=== PATIENT | female | born 1945 | race Caucasian/White ===

== ENCOUNTER 2020-06-29 07:08 | Emergency (ER) | payer OTHER ==
--- OUTSIDE RECORDS SUMMARY | 2020-06-29 07:10 | XMS REPORT | Continuity of Care Document ---
:1945 Author Organization [facility] t Address [address] [place] [address] Dr. Castellanos [address] [place] [id number] Care Team Providers Name Role Phone Unavailable Unavailable Unavailable Problems This patient has no known problems. Allergies, Adverse Reactions, Alerts This patient has no known allergies or adverse reactions. Medications This patient has no known medications. Procedures This patient has no known procedures. Results This patient has no known results.
[2020-06-29 08:23] LABS: Absolute Lymphocytes (CBC) 1.8 K/uL (0.7-4.9); Basophils % 0.5 % (0-1.3); Hematocrit 42.3 % (36.0-45.0); Lymphocytes % 27.6 % (15.3-44.8); MPV 9.5 fL (7.6-11.3); RBC Red Blood Cell Count 4.69 M/uL (3.86-4.86)
[2020-06-29 08:35] LABS: BUN Blood Urea Nitrogen 15 mg/dL (7-18); Bicarbonate 31 mmol/L (21-32); Glucose Level 99 mg/dL (74-106); Potassium 3.7 mmol/L (3.5-5.1); Sodium Level 141 mmol/L (136-145); Troponin (Emerg Dept Use Only) < 0.02 ng/mL (0.0-0.045)
--- NOTE | 2020-06-29 09:39 | ER ---
Nurse's Notes [facility] Name: Elizabeth Walker Age: 74 yrs Sex: Female : 1945 Arrival Date: 06/29/2020 Time: 07:09 Bed 6 Private MD: Kwame Medellin V Diagnosis: Abnormal blood-pressure reading, without diagnosis;Encounter for examination of blood pressure without abnormal findings Presentation: 06/29 07:27 Chief complaint: Patient states: "my blood pressure has been high it was over 200/110 aa5 and then later it was 170/130". Pt denies any symptoms, denies headache. Pt states "I also have white coat syndrome so it doesn't help". 07:27 Coronavirus screen: Client denies travel out of the [place] in the last 14 days. At this aa5 time, the client does not indicate any symptoms associated with coronavirus-19. Ebola Screen: Patient negative for fever greater than or equal to 101.5 degrees Fahrenheit, and additional compatible Ebola Virus Disease symptoms. Initial Sepsis Screen: Does the patient meet any 2 criteria? No. Patient's initial sepsis screen is negative. Does the patient have a suspected source of infection? No. Patient's initial sepsis screen is negative. Risk Assessment: Do you want to hurt yourself or someone else? Patient reports no desire to harm self or others. Onset of symptoms was June 29, 2020. 07:27 Acuity: ROMEL 3 aa5 07:27 Method Of Arrival: Ambulatory aa5 Triage Assessment: 07:30 General: Appears in no apparent distress. comfortable, Behavior is cooperative, bp appropriate for age, anxious. Pain: Denies pain. EENT: No deficits noted. Neuro: Level of Consciousness is awake, alert, obeys commands, Oriented to Appropriate for age. Cardiovascular: No deficits noted. Respiratory: No deficits noted. GI: No signs and/or symptoms were reported involving the gastrointestinal system. : No signs and/or symptoms were reported regarding the genitourinary system. Derm: No deficits noted. Musculoskeletal: No deficits noted. Historical: - Allergies: 07:30 No Known Allergies; aa5 - Home Meds: 07:44 quinapril 20 mg Oral tab once daily [Active]; hydralazine 25 mg Oral tab 2 times per aa5 day [Active]; citalopram 20 mg tab 1 tab once daily [Active]; atenolol 50 mg Oral tab once daily [Active]; omeprazole 20 mg Oral cpDR once daily [Active]; atorvastatin 20 mg oral tab 1 tab once daily [Active]; - PMHx: 07:30 Hypertension; Hyperlipidemia; aa5 - Immunization history:: Adult Immunizations unknown. - Social history:: Smoking status: Patient denies any tobacco usage or history of. - Family history:: not pertinent. - Hospitalizations: : No recent hospitalization is reported. Screenin:30 Abuse screen: Denies threats or abuse. Denies injuries from another. Nutritional bp screening: No deficits noted. Tuberculosis screening: No symptoms or risk factors identified. Fall Risk None identified. Assessment: 07:30 General: SEE TRIAGE NOTE. bp 08:00 Reassessment: Patient appears in no apparent distress at this time. No changes from bp previously documented assessment. Patient and/or family updated on plan of care and expected duration. Pain level reassessed. Patient is alert, oriented x 3, equal unlabored respirations, skin warm/dry/pink. 09:00 Reassessment: Patient appears in no apparent distress at this time. Patient denies pain rb3 at this time. 09:54 Reassessment: Patient appears in no apparent distress at this time. Patient and/or rb3 family updated on plan of care and expected duration. Pain level reassessed. Patient is alert, oriented x 3, equal unlabored respirations, skin warm/dry/pink. Patient denies pain at this time. Vital Signs: 07:27 BP 185 / 98; Pulse 99; Resp 18 S; Temp 98.4(O); Pulse Ox 99% on R/A; Weight 69.85 kg aa5 (R); Height 5 ft. 5 in. (165.10 cm) (R); Pain 0/10; 08:00 BP 173 / 84; Pulse 77; Resp 17; Pulse Ox 99% ; bp 09:07 BP 185 / 83; Pulse 72; Resp 16; Temp 98.5(O); Pulse Ox 99% on R/A; mh5 09:54 BP 175 / 85; Pulse 71; Resp 16; Pulse Ox 99% ; Pain 0/10; rb3 07:27 Body Mass Index 25.63 (69.85 kg, 165.10 cm) aa5 ED Course: 07:09 Patient arrived in ED. ag5 07:09 Kwame Medellin MD is Private Physician. ag5 07:27 Juan F Zhang, RN is Primary Nurse. bp 07:27 Arm band placed on Patient placed in an exam room, on a stretcher. aa5 07:29 Solitario Keyes MD is Attending Physician. rn 07:30 Patient has correct armband on for positive identification. Bed in low position. Call bp light in reach. Side rails up X2. Adult w/ patient. 07:41 Triage completed. aa5 07:54 Primary Nurse role handed off by Juan F Zhang, RN rb3 07:54 Tamanna Dumont, RN is Primary Nurse. rb3 07:54 Tamanna Dumont, HARI is Primary Nurse. rb3 08:10 Inserted saline lock: 22 gauge in right antecubital area, using aseptic technique. rb3 Blood collected. 09:08 Warm blanket given. classroom monitor on. Pulse ox on. NIBP on. 5 09:08 Inserted. 5 09:38 Kwame Medellin MD is Referral Physician. rn 09:56 No provider procedures requiring assistance completed. IV discontinued, intact, rb3 bleeding controlled, No redness/swelling at site. Pressure dressing applied. Administered Medications: No medications were administered Outcome: 09:38 Discharge ordered by . rn 09:56 Discharged to home ambulatory. rb3 09:56 Condition: stable 09:56 Discharge instructions given to patient, Instructed on discharge instructions, follow up and referral plans. Demonstrated understanding of instructions, follow-up care, Prescriptions given X none 09:58 Patient left the ED. rb3 Signatures: Solitario Keyes MD MD rn Calderon, Audri, RN RN [facility] Monika Marshall [facility] Juan F Zhang, RN RN Kelvin [facility] Tamanna Dumont, RN RN rb3
--- NOTE | 2020-06-29 09:39 | EDPHYS ---
Physician Documentation [facility] Name: Elizabeth Walker Age: 74 yrs Sex: Female : 1945 Arrival Date: 06/29/2020 Time: 07:09 Bed 6 Private MD: Kwame Medellin V ED Physician Solitario Keyes HPI: 06/29 09:34 This 74 yrs old Female presents to ER via Ambulatory with complaints of High rn Blood Pressure. 09:34 The patient has elevated blood pressure and discovered this at home. Onset: The rn symptoms/episode began/occurred 3 day(s) ago. Modifying factors: The symptoms are aggravated by nothing, The symptoms are alleviated by nothing. Associated signs and symptoms: Pertinent negatives: chest pain, dizziness, dyspnea, headache, lightheadedness, nausea, visual changes, vomiting, weakness. Severity of symptoms: At its worst the blood pressure was moderate, in the emergency department the blood pressure is improved. The patient has experienced similar episodes in the past. The patient has been recently seen by a physician:. Reports a few days of high blood pressure, no change in medication, denies acute symptoms. No headache/vision changes/chest pain/sob/abd pain/vomiting/focal neuro complaint. . Historical: - Allergies: 07:30 No Known Allergies; aa5 - Home Meds: 07:44 quinapril 20 mg Oral tab once daily [Active]; hydralazine 25 mg Oral tab 2 times per aa5 day [Active]; citalopram 20 mg tab 1 tab once daily [Active]; atenolol 50 mg Oral tab once daily [Active]; omeprazole 20 mg Oral cpDR once daily [Active]; atorvastatin 20 mg oral tab 1 tab once daily [Active]; - PMHx: 07:30 Hypertension; Hyperlipidemia; aa5 - Immunization history:: Adult Immunizations unknown. - Social history:: Smoking status: Patient denies any tobacco usage or history of. - Family history:: not pertinent. - Hospitalizations: : No recent hospitalization is reported. ROS: 09:34 Constitutional: Negative for fever, chills, and weight loss, Eyes: Negative for injury, rn pain, redness, and discharge, Neck: Negative for injury, pain, and swelling, Cardiovascular: Negative for chest pain, palpitations, and edema, Respiratory: Negative for shortness of breath, cough, wheezing, and pleuritic chest pain, Abdomen/GI: Negative for abdominal pain, nausea, vomiting, diarrhea, and constipation, Back: Negative for injury and pain, : Negative for injury, bleeding, discharge, and swelling, MS/Extremity: Negative for injury and deformity, Skin: Negative for injury, rash, and discoloration, Neuro: Negative for headache, weakness, numbness, tingling, and seizure. Exam: 08:13 ECG was reviewed by the Attending Physician. rn 09:34 Constitutional: This is a well developed, well nourished patient who is awake, alert, rn and in no acute distress. Head/Face: Normocephalic, atraumatic. Eyes: Pupils equal round and reactive to light, extra-ocular motions intact. Lids and lashes normal. Conjunctiva and sclera are non-icteric and not injected. Cornea within normal limits. Periorbital areas with no swelling, redness, or edema. Neck: Trachea midline, no thyromegaly or masses palpated, and no cervical lymphadenopathy. Supple, full range of motion without nuchal rigidity, or vertebral point tenderness. No Meningismus. Cardiovascular: Regular rate and rhythm. No pulse deficits. Respiratory: No increased work of breathing, no retractions or nasal flaring. Abdomen/GI: soft, non-tender Skin: Warm, dry MS/ Extremity: Pulses equal, no cyanosis. Neurovascular intact. Full, normal range of motion. Equal circumference. Neuro: Awake and alert, GCS 15, oriented to person, place, time, and situation. Cranial nerves II-XII grossly intact. Motor strength 5/5 in all extremities. Sensory grossly intact. Cerebellar exam normal. Vital Signs: 07:27 BP 185 / 98; Pulse 99; Resp 18 S; Temp 98.4(O); Pulse Ox 99% on R/A; Weight 69.85 kg aa5 (R); Height 5 ft. 5 in. (165.10 cm) (R); Pain 0/10; 08:00 BP 173 / 84; Pulse 77; Resp 17; Pulse Ox 99% ; bp 09:07 BP 185 / 83; Pulse 72; Resp 16; Temp 98.5(O); Pulse Ox 99% on R/A; mh5 09:54 BP 175 / 85; Pulse 71; Resp 16; Pulse Ox 99% ; Pain 0/10; rb3 07:27 Body Mass Index 25.63 (69.85 kg, 165.10 cm) aa5 MDM: 07:29 Patient medically screened. rn 09:34 Differential diagnosis: hypertensive crisis, Malignant HTN, asymptomatic HTN. Data rn reviewed: vital signs, nurses notes, lab test result(s), EKG, and as a result, I will discharge patient. Counseling: I had a detailed discussion with the patient and/or guardian regarding: the historical points, exam findings, and any diagnostic results supporting the discharge/admit diagnosis, lab results, the need for outpatient follow up, to return to the emergency department if symptoms worsen or persist or if there are any questions or concerns that arise at home. Counseling: I had a detailed discussion with the patient and/or guardian regarding: the presence of at least one elevated blood pressure reading (>120/80) during this emergency department visit. Response to treatment: the patient's symptoms have mildly improved after treatment, and as a result, I will discharge patient. Special discussion: I discussed with the patient/guardian in detail that at this point there is no indication for admission to the hospital. It is understood, however, that if the symptoms persist or worsen the patient needs to return immediately for re-evaluation. Based on the history and exam findings, there is no indication for further emergent testing or inpatient evaluation. I discussed with the patient/guardian the need to see the primary care provider for further evaluation of the symptoms. ED course: Had long discussion with patient regarding HTN, neg tests here, no ischemia on ECG, still no acute complaints, and normal neuro exam. Will dc home with instructions to take BP journal at home, and f/u with Dr. Medellin tomorrow for more instructions. . 06/29 07:50 Order name: CBC with Diff; Complete Time: : rn 06/29 07:50 Order name: Basic Metabolic Panel; Complete Time: : rn 06/29 07:50 Order name: IV Start; Complete Time: 08:06 rn 06/29 07:50 Order name: Troponin (emerg Dept Use Only); Complete Time: 09: rn 06/29 07:50 Order name: EKG; Complete Time: 07:51 rn 06/29 07:50 Order name: EKG - Nurse/Tech; Complete Time: 08:06 rn EC:13 Rate is 82 beats/min. Rhythm is regular. QRS Martell is Normal. ID interval is normal. QRS rn interval is normal. QT interval is normal. No Q waves. T waves are Normal. No ST changes noted. Clinical impression: NSR w/ Non-specific ST/T Changes. Interpreted by me. Reviewed by me. Administered Medications: No medications were administered Disposition: 06/29/20 09:38 Discharged to Home. Impression: Abnormal blood-pressure reading, without diagnosis, Encounter for examination of blood pressure without abnormal findings. - Condition is Stable. - Discharge Instructions: Hypertension. - Medication Reconciliation Form, Thank You Letter, Antibiotic Education, Prescription Opioid Use form. - Follow up: Kwame Medellin MD; When: 1 - 2 days; Reason: Recheck today's complaints, Re-evaluation by your physician. - Problem is an ongoing problem. - Symptoms have improved. Signatures: Dispatcher [employer] EDMS Solitario Keyes MD MD rn Calderon, Audri RN RN aa5 Tamanna Dumont RN RN rb3 Corrections: (The following items were deleted from the chart) 09:58 09:38 06/29/2020 09:38 Discharged to Home. Impression: Abnormal blood-pressure reading, rb3 without diagnosis; Encounter for examination of blood pressure without abnormal findings. Condition is Stable. Forms are Medication Reconciliation Form, Thank You Letter, Antibiotic Education, Prescription Opioid Use. Follow up: Kwame Medellin; When: 1 - 2 days; Reason: Recheck today's complaints, Re-evaluation by your physician. Problem is an ongoing problem. Symptoms have improved. rn
[2020-06-29 10:53] VITALS: O2SAT 99
[2020-06-29 10:57] VITALS: TEMP 98.5
[2020-06-29 10:59] VITALS: BP 175/85
== END 2020-06-29 09:58 | disposition home or self-care (01) ==
LOC: ER 07:08
DX: R03.0 Elevated blood-pressure reading, without diagnosis of hypertension (principal); E78.5 Hyperlipidemia, unspecified
CPT/HCPCS: 36415; 80048; 84484; 85025; 93005; 99284

== ENCOUNTER 2022-07-20 17:36 | Emergency (ER) | payer OTHER ==
--- OUTSIDE RECORDS SUMMARY | 2022-07-20 17:39 | XMS REPORT | Continuity of Care Document ---
:1945 Author Organization [facility] t Address [address] [place] [address] Care Team Providers Name Role Phone Kwame Medellin Attending Clinician Unavailable Payers Payer Name Policy Type Policy Number Effective Date Expiration Date [place] [address] [id number] [facility] Problems Condition Condition Condition Status Onset Resolution Last Treating Co mments Source Name Details Category Date Date Treatment Clinician Date [id number] [place], [place] [id number] [facility] [id number] Primary Problem [facility] Allergies, Adverse Reactions, Alerts Allergy Allergy Status Severity Reaction(s) Onset Inactive Treating Comm ents Source Name Type Date Date Clinician 0 Drug Active Unknown Common allergy [facility] amoxicil amoxicil Active Unknown Commo n jhon jhon [facility] Social History Social Habit Start Date Stop Date Quantity Comments Source History of Tobacco Use Co mmon [facility] Sex Assigned At Com mon [facility] Smoking Status Start Date Stop Date Source Former Smoker 2022-06-11 00:00:00 2022-06-11 00:00:00 [facility] Medications Ordered Filled Start Stop Current Ordering Indication Dosage Frequency Signature Comments Components Source Medication Medication Date Date Medication? Clinician (SIG) Name Name Lidocaine Lidocaine 2021-08 No 20mg [facility] 00:00: - [facility] Kenalog Kenalog 2021-08 No 40mg [facility] (Triamcinol (Triamcinol 0-28 S pirit one) one) 00:00: - [facility] Lidocaine Lidocaine 2021-08 No 20mg [facility] 00:00: - [facility] Ralph Rosas 2021-08 No 40mg [facility] (Triamcinol (Triamcinol 0-28 S pirit one) one) 00:00: - [facility] Lidocaine Lidocaine 2021-08 No 20mg Com tue [facility] 00:00: - [facility] Ralph Rosas 2021-08 No 40mg [facility] (Triamcinol (Triamcinol 0-28 S pirit one) one) 00:00: - [facility] Citalopram Citalopram No 1{table QD Citalopram Hydrobromid Hydrobromid t} Hydrobromi e 20 MG e 20 MG de 20 MG amLODIPine amLODIPine No amLODIPine Besylate Besylate Besylate Omeprazole Omeprazole No 1{capsu QD Omeprazole 20 MG 20 MG le} 20 MG hydrALAZINE hydrALAZINE No 1{table QID hydrALAZIN HCl 10 MG HCl 10 MG t_with_ E HCl 10 food} MG Spironolact Spironolact No Spironolac one one tone Atenolol 50 Atenolol 50 No 1{table QD Atenolol MG MG t} 50 MG Magnesium Magnesium No Magnesium Atorvastati Atorvastati No 1{table QD Atorvastat n Calcium n Calcium t} in Calcium 20 MG 20 MG 20 MG Quinapril Quinapril No 1{table QD Quinapril HCl 20 MG HCl 20 MG t} HCl 20 MG Citalopram Citalopram No 1{table QD Citalopram Hydrobromid Hydrobromid t} Hydrobromi e 20 MG e 20 MG de 20 MG amLODIPine amLODIPine No amLODIPine Besylate Besylate Besylate Omeprazole Omeprazole No 1{capsu QD Omeprazole 20 MG 20 MG le} 20 MG hydrALAZINE hydrALAZINE No 1{table QID hydrALAZIN HCl 10 MG HCl 10 MG t_with_ E HCl 10 food} MG Spironolact Spironolact No Spironolac one one tone Atenolol 50 Atenolol 50 No 1{table QD Atenolol MG MG t} 50 MG Magnesium Magnesium No Magnesium Atorvastati Atorvastati No 1{table QD Atorvastat n Calcium n Calcium t} in Calcium 20 MG 20 MG 20 MG Quinapril Quinapril No 1{table QD Quinapril HCl 20 MG HCl 20 MG t} HCl 20 MG Citalopram Citalopram No 1{table QD Citalopram Hydrobromid Hydrobromid t} Hydrobromi e 20 MG e 20 MG de 20 MG amLODIPine amLODIPine No amLODIPine Besylate Besylate Besylate Omeprazole Omeprazole No 1{capsu QD Omeprazole 20 MG 20 MG le} 20 MG hydrALAZINE hydrALAZINE No 1{table QID hydrALAZIN HCl 10 MG HCl 10 MG t_with_ E HCl 10 food} MG Spironolact Spironolact No Spironolac one one tone Atenolol 50 Atenolol 50 No 1{table QD Atenolol MG MG t} 50 MG Magnesium Magnesium No Magnesium Atorvastati Atorvastati No 1{table QD Atorvastat n Calcium n Calcium t} in Calcium 20 MG 20 MG 20 MG Quinapril Quinapril No 1{table QD Quinapril HCl 20 MG HCl 20 MG t} HCl 20 MG Vital Signs Vital Name Observation Time Observation Value Comments Source height 2022-06-11 09:00:00 65.5 [in_i] [facility] weight 2022-06-11 09:00:00 158 [lb_av] [facility] temperature 2022-06-11 09:00:00 98.2 [degF] [facility] bmi 2022-06-11 09:00:00 25.89 kg/m2 [facility] blood pressure 2022-06-11 09:00:00 124 mm[Hg] [facility] systolic [facility] blood pressure 2022-06-11 09:00:00 74 mm[Hg] [facility] diastolic [facility] Procedures This patient has no known procedures. Encounters Start End Encounter Admission Attending Care Care Encounter Source Date/Time Date/Time Type Type Clinicians Facility Department ID 2022-06-11 Outpatient Lacie, STLMLC ST[facility] [id number] [facility] 08:51:04 Kwame [id number] [facility] 2022-06-29 2022-06-29 (TEL) [facility] [id number] Co mmon 00:00:00 00:00:00 [facility] 2022-06-23 2022-06-23 (TEL) [facility] ST[facility] [id number] Co mmon 00:00:00 00:00:00 [facility] 2022-06-11 2022-06-11 OFFICE [facility] [id number] Co mmon 00:00:00 00:00:00 VISIT [facility] PT LEVEL 3 [facility] Results This patient has no known results.
[2022-07-20] MEDS ORDERED: METOPROLOL TARTRATE 5 MG/5 ML INJ IV ONE (18:14)
[2022-07-20 18:31] LABS: Absolute Lymphocytes (CBC) 2.6 K/uL (0.7-4.9); Hematocrit 43.4 % (36.0-45.0); Lymphocytes % 15.7 % (15.3-44.8); MCV 92.1 fL (80-100); MPV 8.1 fL (7.6-11.3); RBC Red Blood Cell Count 4.71 M/uL (3.86-4.86)
--- NOTE | 2022-07-20 18:39 | RAD REPORT ---
EXAM DESCRIPTION: Ijeoma Single View07/20/2022 6:03 pm CLINICAL HISTORY: Palpitation COMPARISON: 2013 FINDINGS: The lungs appear clear of acute infiltrate. The heart is normal size IMPRESSION: No acute abnormalities displayed
[2022-07-20 18:48] LABS: Potassium 3.9 mmol/L (3.5-5.1); Troponin High Sensitivity 17.9 pg/mL (<58.9)
[2022-07-20 19:16] LABS: SARS-CoV-2 Antigen Rapid Res Negative (Negative)
--- NOTE | 2022-07-20 19:54 | RAD REPORT ---
EXAM DESCRIPTION: USExtrem Venous W Compress Bil07/20/2022 7:47 pm CLINICAL HISTORY: elevated D-dimer COMPARISON: none FINDINGS: The common femoral, superficial femoral, popliteal and posterior tibial veins bilaterally are compressible and demonstrate augmentation. Doppler demonstrates good flow. Grayscale, color and spectral analysis performed on all vessels IMPRESSION: No evidence of deep venous thrombosis involving either lower extremity.
[2022-07-20] MEDS ORDERED: ASPIRIN 81 MG CHEWABLE TABLET ONE (20:29)
[2022-07-20 21:03] LABS: Urine Blood 3+ (Negative); Urine Glucose Negative (Negative); Urine Protein Negative (Negative); Urine Specific Gravity 1.015 (1.005-1.030); Urine pH 6.5 (5.0-7.0)
--- NOTE | 2022-07-20 21:11 | EDPHYS ---
Physician Documentation [facility] Name: Elizabeth Walker Age: 76 yrs Sex: Female : 1945 Arrival Date: 07/20/2022 Time: 17:40 Bed 3 Private MD: Kwame Medellin V ED Physician Richy Gracia HPI: 07/20 18:00 This 76 yrs old Female presents to ER via Ambulatory with complaints of Palpitations. kdr 18:00 The patient presents with a history of irregular heart beat, heart racing. Context: The kdr symptoms occur at rest, with light activity. Onset: The symptoms/episode began/occurred suddenly, just prior to arrival, at 17:30. Duration: The patient or guardian reports a single episode, that is still ongoing. Modifying factors: The symptoms are aggravated by nothing. The symptoms are alleviated by nothing. Associated signs and symptoms: The patient has no apparent associated signs or symptoms. Severity of symptoms: At their worst the symptoms were mild in the emergency department the symptoms are unchanged. The patient has not experienced similar symptoms in the past. The patient has not recently seen a physician. Historical: - PMHx: 17:46 Hyperlipidemia; Hypertension; ss - Immunization history:: Adult Immunizations up to date. - Social history:: Smoking status: Patient denies any tobacco usage or history of. ROS: 18:00 Constitutional: Negative for fever, chills, and weight loss, Eyes: Negative for injury, kdr pain, redness, and discharge, ENT: Negative for injury, pain, and discharge, Neck: Negative for injury, pain, and swelling, Respiratory: Negative for shortness of breath, cough, wheezing, and pleuritic chest pain, Abdomen/GI: Negative for abdominal pain, nausea, vomiting, diarrhea, and constipation, Back: Negative for injury and pain, : Negative for injury, bleeding, discharge, and swelling, MS/Extremity: Negative for injury and deformity, Skin: Negative for injury, rash, and discoloration, Neuro: Negative for headache, weakness, numbness, tingling, and seizure activity. Psych: Negative for depression, anxiety, suicide ideation, homicidal ideation, and hallucinations, Allergy/Immunology: Negative for hives, rash, and allergies, Endocrine: Negative for neck swelling, polydipsia, polyuria, polyphagia, and marked weight changes, Hematologic/Lymphatic: Negative for swollen nodes, abnormal bleeding, and unusual bruising. 18:00 Cardiovascular: Positive for chest pain, palpitations, Negative for edema, orthopnea, paroxysmal nocturnal dyspnea. Exam: 18:00 Constitutional: This is a well developed, well nourished patient who is awake, alert, kdr and in no acute distress. Head/Face: Normocephalic, atraumatic. Eyes: Pupils equal round and reactive to light, extra-ocular motions intact. Lids and lashes normal. Conjunctiva and sclera are non-icteric and not injected. Cornea within normal limits. Periorbital areas with no swelling, redness, or edema. Neck: Trachea midline, no thyromegaly or masses palpated, and no cervical lymphadenopathy. Supple, full range of motion without nuchal rigidity, or vertebral point tenderness. No Meningismus. Chest/axilla: Normal chest wall appearance and motion. Nontender with no deformity. No lesions are appreciated. Respiratory: Lungs have equal breath sounds bilaterally, clear to auscultation and percussion. No rales, rhonchi or wheezes noted. No increased work of breathing, no retractions or nasal flaring. Abdomen/GI: Soft, non-tender, with normal bowel sounds. No distension or tympany. No guarding or rebound. No evidence of tenderness throughout. Back: No spinal tenderness. No costovertebral tenderness. Full range of motion. Skin: Warm, dry with normal turgor. Normal color with no rashes, no lesions, and no evidence of cellulitis. MS/ Extremity: Pulses equal, no cyanosis. Neurovascular intact. Full, normal range of motion. Neuro: Awake and alert, GCS 15, oriented to person, place, time, and situation. Cranial nerves II-XII grossly intact. Motor strength 5/5 in all extremities. Sensory grossly intact. Cerebellar exam normal. Normal gait. Psych: Awake, alert, with orientation to person, place and time. Behavior, mood, and affect are within normal limits. 18:00 Cardiovascular: Rate: tachycardic, Rhythm: regular, Pulses: no pulse deficits are appreciated, Heart sounds: normal, Edema: is not appreciated. 18:13 ECG was reviewed by the Attending Physician. kdr Vital Signs: 17:44 BP 170 / 90; Pulse 150; Resp 18; Temp 98.6; Pulse Ox 98% on R/A; Weight 70.76 kg; ss Height 5 ft. 5 in. (165.10 cm); Pain 0/10; 18:45 BP 142 / 79; Pulse 90; Resp 14; Pulse Ox 99% ; bp 22:42 BP 128 / 82; Pulse 82; Resp 18; Pulse Ox 98% on R/A; kl 17:44 Body Mass Index 25.96 (70.76 kg, 165.10 cm) ss MDM: 18:00 Data reviewed: vital signs, nurses notes, lab test result(s), radiologic studies. kdr Counseling: I had a detailed discussion with the patient and/or guardian regarding: the historical points, exam findings, and any diagnostic results supporting the discharge/admit diagnosis, lab results, radiology results, the need for outpatient follow up. 19:10 Patient medically screened. kris 20:24 ED course: pt an refuse ct pe, no iv contrast, even if pt dies as a result of kris not diagnosing a pe, both and pt understand and accept thjs real risk. 07/20 17:50 Order name: Basic Metabolic Panel; Complete Time: 18:54 kdr 07/20 17:50 Order name: CBC with Diff; Complete Time: 18:54 kdr 07/20 17:50 Order name: Troponin HS; Complete Time: 18:54 kdr 07/20 18:15 Order name: SARS RAPID; Complete Time: 19:20 la1 07/20 18:19 Order name: D-Dimer; Complete Time: 19:20 kdr 07/20 17:50 Order name: XRAY Chest (1 view); Complete Time: 18:54 kdr 07/20 18:19 Order name: US Extremity Venous W Compression Roly; Complete Time: 20:10 kdr 07/20 19:21 Order name: CT Chest For PE Angio; Complete Time: 22:11 kris 07/20 20:40 Order name: LFT's; Complete Time: 21:18 kris 07/20 21:03 Order name: Urine Dipstick-Ancillary; Complete Time: 21:06 EDMS 07/20 17:50 Order name: EKG; Complete Time: 17:51 kdr 07/20 17:50 Order name: Cardiac monitoring; Complete Time: 18:14 kdr 07/20 17:50 Order name: EKG - Nurse/Tech; Complete Time: 18:14 kdr 07/20 17:50 Order name: IV Saline Lock; Complete Time: 18:28 kdr 07/20 17:50 Order name: Labs collected and sent; Complete Time: 18:28 kdr 07/20 17:50 Order name: O2 Per Protocol; Complete Time: 18:04 kdr 07/20 17:50 Order name: O2 Sat Monitoring; Complete Time: 18:04 kdr 07/20 20:11 Order name: Urine Dipstick-Ancillary (obtain specimen); Complete Time: 21:03 kris EC:13 Rate is 113 beats/min. Rhythm is regular, Sinus tachycardia with No ectopy. QRS [place] is kdr Normal. UT interval is normal. QRS interval is normal. QT interval is normal. Clinical impression: NSR w/ Non-specific ST/T Changes. Administered Medications: 18:28 Drug: Lopressor (metoprolol) 5 mg Route: IVP; Site: right forearm; bp 20:31 Not Given (Patient Refused): NS 0.9% 500 ml IV at bolus once ll3 20:31 Drug: Aspirin Chewable Tablet 81 mg Route: PO; ll3 20:32 Not Given (Patient Refused): NS 0.9% 1000 ml IV at 125 ml/hr continuous ll3 20:32 Not Given (Patient Refused): Lovenox (enoxaparin) 1 mg/kg Sub-Q once ll3 21:53 Drug: Rocephin (cefTRIAXone) 1 grams Route: IV; Rate: per protocol; Site: right forearm;ll3 22:40 Follow up: IV Status: Completed infusion; IV Intake: 100ml kl 21:53 Drug: NS 0.9% 500 ml Route: IV; Rate: bolus; Site: right forearm; ll3 22:40 Follow up: IV Status: Completed infusion; IV Intake: 500ml kl Disposition Summary: 07/20/22 21:11 Discharge Ordered Location: Home kris Problem: new kris Symptoms: have improved kris Condition: Fair kris Diagnosis - Palpitations kris - Tachycardia, unspecified kris - Elevated white blood cell count kris - UTI/ Urinary tract infection, site not specified kris Followup: kris - With: - When: Tomorrow - Reason: Recheck today's complaints, Continuance of care, Re-evaluation by your physician Followup: kris - With: - When: 2 - 3 days - Reason: Recheck today's complaints, Continuance of care, Re-evaluation by your physician Discharge Instructions: - Discharge Summary Sheet kris - Palpitations kris - Aspirin and Your Heart kris - Palpitations, [id number] kris - Sinus Tachycardia kris Forms: - Medication Reconciliation Form kris - Thank You Letter kris - Antibiotic Education kris - Prescription Opioid Use kris Prescriptions: - Atenolol 50 mg Oral Tablet - take 1 tablet by ORAL route once daily; 30 tablet; Refills: 0, Product kris Selection Permitted - Bactrim DS 800-160 mg Oral Tablet - take 1 tablet by ORAL route every 12 hours for 5 days; 10 tablet; Refills: 0, kris Product Selection Permitted Signatures: Dispatcher [employer] EDRichy Schwartz MD MD cha Rittger, Kevin, MD MD kdr Smirch, Shelby, RN RN ss Juan F Zhang RN RN Marlyn Snyder RN RN ll3 Kim Walker RN
--- NOTE | 2022-07-20 21:11 | ER ---
Nurse's Notes [facility] Name: Elizabeth Walker Age: 76 yrs Sex: Female : 1945 Arrival Date: 07/20/2022 Time: 17:40 Bed 3 Private MD: Kwame Medellin V Diagnosis: Palpitations;Tachycardia, unspecified;Elevated white blood cell count;UTI/ Urinary tract infection, site not specified Presentation: 07/20 17:44 Chief complaint: Patient states: irregular heart beat / palpitations, no hx of afib, ss denies chest pain. Coronavirus screen: Vaccine status: Patient reports being unvaccinated. Client denies travel out of the [place] in the last 14 days. Ebola Screen: Patient negative for fever greater than or equal to 101.5 degrees Fahrenheit, and additional compatible Ebola Virus Disease symptoms Patient denies exposure to infectious person. Patient denies travel to an Ebola-affected area in the 21 days before illness onset. Initial Sepsis Screen: Does the patient meet any 2 criteria? No. Patient's initial sepsis screen is negative. Does the patient have a suspected source of infection? No. Patient's initial sepsis screen is negative. Risk Assessment: Do you want to hurt yourself or someone else? Patient reports no desire to harm self or others. 17:44 Method Of Arrival: Ambulatory ss 17:44 Acuity: ROMEL 2 ss Triage Assessment: 17:46 General: Appears in no apparent distress. uncomfortable, slender, well groomed, well ss developed, Behavior is calm, cooperative, appropriate for age. Pain: Denies pain. Historical: - PMHx: 17:46 Hyperlipidemia; Hypertension; ss - Immunization history:: Adult Immunizations up to date. - Social history:: Smoking status: Patient denies any tobacco usage or history of. Screenin:00 Abuse screen: Denies threats or abuse. Denies injuries from another. Nutritional bp screening: No deficits noted. Tuberculosis screening: No symptoms or risk factors identified. Fall Risk None identified. Assessment: 18:00 General: SEE TRIAGE NOTE. bp 22:41 Reassessment: Patient appears in no apparent distress at this time. Patient and/or kl family updated on plan of care and expected duration. Pain level reassessed. Patient is alert, oriented x 3, equal unlabored respirations, skin warm/dry/pink. Patient states feeling better. Vital Signs: 17:44 BP 170 / 90; Pulse 150; Resp 18; Temp 98.6; Pulse Ox 98% on R/A; Weight 70.76 kg; ss Height 5 ft. 5 in. (165.10 cm); Pain 0/10; 18:45 BP 142 / 79; Pulse 90; Resp 14; Pulse Ox 99% ; bp 22:42 BP 128 / 82; Pulse 82; Resp 18; Pulse Ox 98% on R/A; kl 17:44 Body Mass Index 25.96 (70.76 kg, 165.10 cm) ss ED Course: 17:40 Patient arrived in ED. mr 17:40 Kwame Medellin MD is Private Physician. mr 17:46 Triage completed. ss 17:46 Arm band placed on right wrist. EKG completed in triage. Results shown to MD. EKG ss completed in triage. Results shown to MD. 17:50 Niall Pelayo MD is Attending Physician. kdr 17:55 Juan F Zhang, HARI is Primary Nurse. bp 18:00 Patient has correct armband on for positive identification. Bed in low position. Call bp light in reach. Side rails up X2. 18:05 XRAY Chest (1 view) In Process Unspecified. EDMS 18:28 Inserted saline lock: 22 gauge in right forearm, using aseptic technique. bp 19:10 Attending Physician role handed off by Niall Pelayo MD kris 19:10 Richy Gracia MD is Attending Physician. kris 19:17 Notified ED physician of a critical lab result(s). D Dimer 910. kl 19:23 Primary Nurse role handed off by Juan F Zhang, RN mw2 19:49 US Extremity Venous W Compression Roly In Process Unspecified. EDMS 21:11 Kwame Medellin MD is Referral Physician. kris 21:11 Praful Sinclair MD is Referral Physician. kris 21:44 CT Chest For PE Angio In Process Unspecified. EDMS 22:41 No provider procedures requiring assistance completed. IV discontinued, intact, kl bleeding controlled, No redness/swelling at site. Pressure dressing applied. Administered Medications: 18:28 Drug: Lopressor (metoprolol) 5 mg Route: IVP; Site: right forearm; bp 20:31 Not Given (Patient Refused): NS 0.9% 500 ml IV at bolus once ll3 20:31 Drug: Aspirin Chewable Tablet 81 mg Route: PO; ll3 20:32 Not Given (Patient Refused): NS 0.9% 1000 ml IV at 125 ml/hr continuous ll3 20:32 Not Given (Patient Refused): Lovenox (enoxaparin) 1 mg/kg Sub-Q once ll3 21:53 Drug: Rocephin (cefTRIAXone) 1 grams Route: IV; Rate: per protocol; Site: right forearm;ll3 22:40 Follow up: IV Status: Completed infusion; IV Intake: 100ml kl 21:53 Drug: NS 0.9% 500 ml Route: IV; Rate: bolus; Site: right forearm; ll3 22:40 Follow up: IV Status: Completed infusion; IV Intake: 500ml kl Medication: 22:41 VIS not applicable for this client. kl Intake: 22:40 IV: 500ml; Total: 500ml. kl 22:40 IV: 100ml; Total: 600ml. Outcome: 21:11 Discharge ordered by . kris 22:42 Discharged to home ambulatory, with family. 22:42 Condition: stable 22:42 Discharge instructions given to patient, Instructed on discharge instructions, follow up and referral plans. medication usage, Demonstrated understanding of instructions, follow-up care, medications, Prescriptions given X 2. 22:42 Patient left the ED. Signatures: Dispatcher [employer] EDMS Kim Walker RN RN kl Anderson, Corey, MD MD cha Rittger, Kevin, MD MD [facility], [facility] mr Denisa Santamaria RN RN ss Peltier, Brian, RN RN bp [place], [facility] Marlyn Hern[facility]dez RN RN ll3
[2022-07-20 21:14] LABS: ALT/SGPT 30 U/L (12-78); AST/SGOT 19 U/L (15-37); Albumin 3.6 g/dL (3.4-5.0); Alkaline Phosphatase 104 U/L (45-117); Bilirubin Total 0.2 mg/dL (0.2-1.0); Protein, Total 7.3 g/dL (6.4-8.2)
[2022-07-20 21:17] LABS: Bilirubin Direct < 0.1 mg/dL (0-0.2)
[2022-07-20] MEDS ORDERED: NA CHLORIDE 0.9% 500 ML ONE (21:25)
[2022-07-20] MEDS ORDERED: CEFTRIAXONE 1000 MG/VIAL ONE (21:25)
--- NOTE | 2022-07-20 21:57 | RAD REPORT ---
EXAM DESCRIPTION: CT - Chest For Pe Angio - 07/20/2022 9:41 pm CLINICAL HISTORY: Chest pain COMPARISON: None. TECHNIQUE: Dynamically enhanced axial 3 mm thick images of the chest were obtained during administra tion of <100> mL Isovue 370 IV contrast. Coronal and oblique reconstruction images were generated and reviewed. Exam utilizes a protocol for optimal evaluation of pulmonary arterial tree. Maximum intensity projections 3D imaging was utilized All CT scans are performed using dose optimization technique as appropriate and may include automated exposure control or mA/KV adjustment according to patient size. FINDINGS: A pulmonary embolus is not seen. A thoracic aortic aneurysm is not noted. A pleural effusion is not seen. A pericardial effusion is not seen. A lung consolidation is not present. 4 centimeter hepatic cyst IMPRESSION: Negative for a pulmonary embolism.
[2022-07-21 06:57] VITALS: TEMP 98.6
[2022-07-21 07:08] VITALS: BP 128/82; O2SAT 98
== END 2022-07-20 22:42 | disposition home or self-care (01) ==
LOC: ER 17:36
DX: R00.0 Tachycardia, unspecified (principal); N39.0 Urinary tract infection, site not specified; D72.829 Elevated white blood cell count, unspecified; I10 Essential (primary) hypertension; E78.5 Hyperlipidemia, unspecified; Z20.822 Contact with and (suspected) exposure to COVID-19
CPT/HCPCS: 96365; 93005; 85025; 80048; 36415; 85379; 80076; 81003; 84484; 71275; 71045; 93970; 96375; 99284; 87811; Q9967; J7040

== ENCOUNTER 2023-07-10 14:11 | Emergency (ER) | payer OTHER ==
--- OUTSIDE RECORDS SUMMARY | 2023-07-10 14:20 | XMS REPORT | Continuity of Care Document ---
:1945 Author Organization [facility] t Address [address] [facility] [place] [address] Care Team Providers Name Role Phone Kwame Medellin Attending Clinician Unavailable Beth Attending Clinician Unavailable Maxwell Mcdermott Attending Clinician Unavailable Beth Admitting Clinician Unavailable Maxwell Mcdermott Admitting Clinician Unavailable UNDEFINED Admitting Clinician Unavailable Payers Payer Name Policy Type Policy Number Effective Date Expiration Date S malick YPSILANTI [id number] 2022 HEALTHCARE 00:00:00 (MEDICARE REPLACEMENT/ADVA NTAGE - PPO) [place] [address] [id number] [facility] Problems Condition Condition Condition Status Onset Resolution Last Treating Co mments Source Name Details Category Date Date Treatment Clinician Date 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 10-07 Or thope present Present 00:00: dic 00 Sports Medicin e Pain of Pain of Problem Active Vania right knee Right Knee 1-19 Or thope joint Joint 00:00: dic 00 Sports Medicin e 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 Right Knee di c joint Joint Sports Medicin e Allergies, Adverse Reactions, Alerts Allergy Allergy Status Severity Reaction(s) Onset Inactive Treating Comm ents Source Name Type Date Date Clinician Penicill DA Active MO RASH [facility] ins 1-25 Clear 00:00: Key 00 Regiona l [facility] Sulfa DA Active SV ANAPHYLAXIS [facility] (Sulfona 1-25 Clear mide 00:00: Key Antibiot 00 Regiona ics) [facility] Amoxicil Allergy Active Vania jhon to Orthope substanc dic e Sports Medicin e SULFA Allergy Active Vania (SULFONA to Orthope MIDE substanc dic ANTIBIOT e Sports ICS) Medicin e amoxicil amoxicil Active Unknown Commo n jhon jhon [facility] Social History Social Habit Start Date Stop Date Quantity Comments Source History of Tobacco Use Co mmon [facility] Sex Assigned At Com [facility] Smoking Status Start Date Stop Date Source Never Smoker [facility] Orth[facility] Former Smoker 2022-07-20 00:00:00 2022-07-20 00:00:00 Common S [facility] Medications Ordered Filled Start Stop Current Ordering Indication Dosage Frequency Signature Comments Components Source Medication Medication Date Date Medication? Clinician (SIG) Name Name Lidocaine Lidocaine 2021-08 No 20mg Com mon 0 Spirit 00:00: - [facility] Ralph Rosas 2021-08 No 40mg Common (Triamcinol (Triamcinol 0-28 S pirit one) one) 00:00: - [facility] Lidocaine Lidocaine 2021-08 No 20mg Com mon 0 Spirit 00:00: - [facility] Ralph Frederickalog 2021-08 No 40mg Common (Triamcinol (Triamcinol 0-28 S pirit one) one) 00:00: - [facility] Lidocaine Lidocaine 2021-08 No 20mg Com mon 0 Spirit 00:00: - [facility] Ralph Kenalog 2021-08 No 40mg Common (Triamcinol (Triamcinol 0-28 S pirit one) one) 00:00: - [facility] Lidocaine Lidocaine 2021-08 No 20mg Com mon 0 Spirit 00:00: - [facility] Kenalog Kenalog 2021-1 No 40mg Common (Triamcinol (Triamcinol 0-28 S pirit one) one) 00:00: - [facility] atorvastati atorvastati No atorvastat Vania n 40 mg n 40 mg in 40 mg Ortho pe tablet TAKE tablet TAKE tablet dic 1 TABLET BY 1 TABLET BY TAKE 1 Sports MOUTH EVERY MOUTH EVERY TABLET BY Medicin DAY DAY MOUTH e EVERY DAY Augmentin Augmentin No 1 TID Augmentin Vania 500 mg-125 500 mg-125 500 mg-125 Orthope mg tablet mg tablet mg tablet dic Take 1 Take 1 Take 1 Sports tablet 3 tablet 3 tablet 3 Med icin times a day times a day times a e by oral by oral day by route as route as oral route directed directed as for 3 days. for 3 days. directed for 3 days. citalopram citalopram No citalopram Vania 20 mg 20 mg 20 mg Orthope tablet 1 tablet 1 tablet 1 dic {tablet} by {tablet} by {tablet} Sports oral route. oral route. by oral Medicin route. e diclofenac diclofenac No diclofenac Vania sodium 75 sodium 75 sodium 75 Orthope mg mg mg dic tablet,freya tablet,freya tablet,del Sports yed release yed release ayed M edicin Take one Take one release e tablet by tablet by Take one mouth twice mouth twice tablet by a day after a day after mouth finishing 5 finishing 5 twice a days of days of day after Ketorolac Ketorolac finishing 5 days of Ketorolac famotidine famotidine No famotidine Vania 20 mg 20 mg 20 mg Orthope tablet tablet tablet dic Sports Medicin e Hibiclens 4 Hibiclens 4 No Hibiclens Vania % topical % topical 4 % Ortho pe liquid liquid topical dic APPLY 1 APPLY 1 liquid Sports APPLICATION APPLICATION APPLY 1 Medicin EVERY DAY EVERY DAY APPLICATIO e BY TOPICAL BY TOPICAL N EVERY ROUTE ROUTE DAY BY DIRECTED DIRECTED TOPICAL FOR 5 DAYS. FOR 5 DAYS. ROUTE DIRECTED FOR 5 DAYS. hydralazine hydralazine No 1{table QID hydralazin Vania 10 mg 10 mg t_with_ e 10 mg Orthope tablet 1 tablet 1 food} tablet 1 di c {tablet_wit {tablet_wit {tablet_wi Sports h_food} 4 h_food} 4 th_food} 4 Medicin times a day times a day times a e by oral by oral day by route. route. oral route. omeprazole omeprazole No 1{capsu omeprazole Vania 20 mg 20 mg le} 20 mg Orthope capsule,del capsule,del capsule,de dic ayed ayed layed Sports release 1 release 1 release 1 Medicin {capsule} {capsule} {capsule} e by oral by oral by oral route. route. route. quinapril quinapril No 1{table quinapril Vania 20 mg 20 mg t} 20 mg Orthope tablet 1 tablet 1 tablet 1 dic {tablet} by {tablet} by {tablet} Sports oral route. oral route. by oral Medicin route. e tizanidine tizanidine No tizanidine Vania 4 mg tablet 4 mg tablet 4 mg O rthope Take 1 Take 1 tablet dic tablet(s) tablet(s) Take 1 Spo rts EVERY 8 EVERY 8 tablet(s) Medi kandy HOURS by HOURS by EVERY 8 e oral route, oral route, HOURS by as needed as needed oral for muscle for muscle route, as spasm spasm needed for muscle spasm atenolol 50 atenolol 50 No 1{table atenolol Vania mg tablet 1 mg tablet 1 t} 50 mg Orthope {tablet} by {tablet} by tablet 1 dic oral route. oral route. {tablet} Sports by oral Medicin route. e atorvastati atorvastati No 1{table atorvastat Vania n 20 mg n 20 mg t} in 20 mg Ortho pe tablet 1 tablet 1 tablet 1 dic {tablet} by {tablet} by {tablet} Sports oral route. oral route. by oral Medicin route. e citalopram citalopram No 1{table citalopram Vania 20 mg 20 mg t} 20 mg Orthope tablet 1 tablet 1 tablet 1 dic {tablet} by {tablet} by {tablet} Sports oral route. oral route. by oral Medicin route. e hydralazine hydralazine No 1{table QID hydralazin Vania 10 mg 10 mg t_with_ e 10 mg Orthope tablet 1 tablet 1 food} tablet 1 di c {tablet_wit {tablet_wit {tablet_wi Sports h_food} 4 h_food} 4 th_food} 4 Medicin times a day times a day times a e by oral by oral day by route. route. oral route. omeprazole omeprazole No 1{capsu omeprazole Vania 20 mg 20 mg le} 20 mg Orthope capsule,del capsule,del capsule,de dic ayed ayed layed Sports release 1 release 1 release 1 Medicin {capsule} {capsule} {capsule} e by oral by oral by oral route. route. route. quinapril quinapril No 1{table quinapril Vania 20 mg 20 mg t} 20 mg Orthope tablet 1 tablet 1 tablet 1 dic {tablet} by {tablet} by {tablet} Sports oral route. oral route. by oral Medicin route. e amlodipine amlodipine No amlodipine Vania 10 mg 10 mg 10 mg Orthope tablet TAKE tablet TAKE tablet dic 1 TABLET BY 1 TABLET BY TAKE 1 Sports MOUTH EVERY MOUTH EVERY TABLET BY Medicin DAY DAY MOUTH e EVERY DAY aspirin 81 aspirin 81 No aspirin 81 Vania mg mg mg Orthope tablet,freya tablet,freya tablet,del dic yed release yed release ayed S ports TAKE 1 TAKE 1 release Medicin TABLET BY TABLET BY TAKE 1 e MOUTH TWICE MOUTH TWICE TABLET BY A DAY A DAY MOUTH TWICE A DAY atenolol 50 atenolol 50 No 1{table atenolol Vania mg tablet 1 mg tablet 1 t} 50 mg Orthope {tablet} by {tablet} by tablet 1 dic oral route. oral route. {tablet} Sports by oral Medicin route. e atorvastati atorvastati No 1{table atorvastat Vania n 20 mg n 20 mg t} in 20 mg Ortho pe tablet 1 tablet 1 tablet 1 dic {tablet} by {tablet} by {tablet} Sports oral route. oral route. by oral Medicin route. e citalopram citalopram No citalopram Vania 20 mg 20 mg 20 mg Orthope tablet 1 tablet 1 tablet 1 dic {tablet} by {tablet} by {tablet} Sports oral route. oral route. by oral Medicin route. e diclofenac diclofenac No diclofenac Vania sodium 75 sodium 75 sodium 75 Orthope mg mg mg dic tablet,freya tablet,freya tablet,del Sports yed release yed release ayed M edicin Take one Take one release e tablet by tablet by Take one mouth twice mouth twice tablet by a day after a day after mouth finishing 5 finishing 5 twice a days of days of day after Ketorolac Ketorolac finishing 5 days of Ketorolac famotidine famotidine No famotidine Vania 20 mg 20 mg 20 mg Orthope tablet tablet tablet dic Sports Medicin e Hibiclens 4 Hibiclens 4 No Hibiclens Vania % topical % topical 4 % Ortho pe liquid liquid topical dic APPLY 1 APPLY 1 liquid Sports APPLICATION APPLICATION APPLY 1 Medicin EVERY DAY EVERY DAY APPLICATIO e BY TOPICAL BY TOPICAL N EVERY ROUTE ROUTE DAY BY DIRECTED DIRECTED TOPICAL FOR 5 DAYS. FOR 5 DAYS. ROUTE DIRECTED FOR 5 DAYS. hydralazine hydralazine No 1{table QID hydralazin Vania 10 mg 10 mg t_with_ e 10 mg Orthope tablet 1 tablet 1 food} tablet 1 di c {tablet_wit {tablet_wit {tablet_wi Sports h_food} 4 h_food} 4 th_food} 4 Medicin times a day times a day times a e by oral by oral day by route. route. oral route. omeprazole omeprazole No 1{capsu omeprazole Vania 20 mg 20 mg le} 20 mg Orthope capsule,del capsule,del capsule,de dic ayed ayed layed Sports release 1 release 1 release 1 Medicin {capsule} {capsule} {capsule} e by oral by oral by oral route. route. route. quinapril quinapril No 1{table quinapril Vania 20 mg 20 mg t} 20 mg Orthope tablet 1 tablet 1 tablet 1 dic {tablet} by {tablet} by {tablet} Sports oral route. oral route. by oral Medicin route. e tizanidine tizanidine No tizanidine Vania 4 mg tablet 4 mg tablet 4 mg O rthope Take 1 Take 1 tablet dic tablet(s) tablet(s) Take 1 Spo rts EVERY 8 EVERY 8 tablet(s) Medi kandy HOURS by HOURS by EVERY 8 e oral route, oral route, HOURS by as needed as needed oral for muscle for muscle route, as spasm spasm needed for muscle spasm amlodipine amlodipine No amlodipine Vania 10 mg 10 mg 10 mg Orthope tablet TAKE tablet TAKE tablet dic 1 TABLET BY 1 TABLET BY TAKE 1 Sports MOUTH EVERY MOUTH EVERY TABLET BY Medicin DAY DAY MOUTH e EVERY DAY aspirin 81 aspirin 81 No aspirin 81 Vania mg mg mg Orthope tablet,freya tablet,freya tablet,del dic yed release yed release coleen lozano TAKE 1 TAKE 1 release Medicin TABLET BY TABLET BY TAKE 1 e MOUTH TWICE MOUTH TWICE TABLET BY A DAY A DAY MOUTH TWICE A DAY atenolol atenolol No atenolol Aza gregorio 100 mg 100 mg 100 mg Orthope tablet TAKE tablet TAKE tablet dic 1 TABLET BY 1 TABLET BY TAKE 1 Sports MOUTH EVERY MOUTH EVERY TABLET BY Medicin DAY DAY MOUTH e EVERY DAY atenolol 50 atenolol 50 No 1{table atenolol Vania mg tablet 1 mg tablet 1 t} 50 mg Orthope {tablet} by {tablet} by tablet 1 dic oral route. oral route. {tablet} Sports by oral Medicin route. e atorvastati atorvastati No 1{table atorvastat Vania n 20 mg n 20 mg t} in 20 mg Ortho pe tablet 1 tablet 1 tablet 1 dic {tablet} by {tablet} by {tablet} Sports oral route. oral route. by oral Medicin route. e atorvastati atorvastati No atorvastat Vania n 40 mg n 40 mg in 40 mg Ortho pe tablet TAKE tablet TAKE tablet dic 1 TABLET BY 1 TABLET BY TAKE 1 Sports MOUTH EVERY MOUTH EVERY TABLET BY Medicin DAY DAY MOUTH e EVERY DAY citalopram citalopram No citalopram Vania 20 mg 20 mg 20 mg Orthope tablet 1 tablet 1 tablet 1 dic {tablet} by {tablet} by {tablet} Sports oral route. oral route. by oral Medicin route. e diclofenac diclofenac No diclofenac Vania sodium 75 sodium 75 sodium 75 Orthope mg mg mg dic tablet,freya tablet,freya tablet,del Sports yed release yed release coleen light Take one Take one release e tablet by tablet by Take one mouth twice mouth twice tablet by a day after a day after mouth finishing 5 finishing 5 twice a days of days of day after Ketorolac Ketorolac finishing 5 days of Ketorolac famotidine famotidine No famotidine Vania 20 mg 20 mg 20 mg Orthope tablet tablet tablet dic Sports Medicin e Hibiclens 4 Hibiclens 4 No Hibiclens Vania % topical % topical 4 % Ortho pe liquid liquid topical dic APPLY 1 APPLY 1 liquid Sports APPLICATION APPLICATION APPLY 1 Medicin EVERY DAY EVERY DAY APPLICATIO e BY TOPICAL BY TOPICAL N EVERY ROUTE ROUTE DAY BY DIRECTED DIRECTED TOPICAL FOR 5 DAYS. FOR 5 DAYS. ROUTE DIRECTED FOR 5 DAYS. hydralazine hydralazine No 1{table QID hydralazin Vania 10 mg 10 mg t_with_ e 10 mg Orthope tablet 1 tablet 1 food} tablet 1 d ic {tablet_wit {tablet_wit {tablet_wi Sports h_food} 4 h_food} 4 th_food} 4 Medicin times a day times a day times a e by oral by oral day by route. route. oral route. omeprazole omeprazole No 1{capsu omeprazole Vania 20 mg 20 mg le} 20 mg Orthope capsule,del capsule,del capsule,de dic ayed ayed layed Sports release 1 release 1 release 1 Medicin {capsule} {capsule} {capsule} e by oral by oral by oral route. route. route. quinapril quinapril No 1{table quinapril Vania 20 mg 20 mg t} 20 mg Orthope tablet 1 tablet 1 tablet 1 dic {tablet} by {tablet} by {tablet} Sports oral route. oral route. by oral Medicin route. e tizanidine tizanidine No tizanidine Vania 4 mg tablet 4 mg tablet 4 mg O rthope Take 1 Take 1 tablet dic tablet(s) tablet(s) Take 1 Spo rts EVERY 8 EVERY 8 tablet(s) Medi kandy HOURS by HOURS by EVERY 8 e oral route, oral route, HOURS by as needed as needed oral for muscle for muscle route, as spasm spasm needed for muscle spasm amlodipine amlodipine No amlodipine Vania 10 mg 10 mg 10 mg Orthope tablet TAKE tablet TAKE tablet dic 1 TABLET BY 1 TABLET BY TAKE 1 Sports MOUTH EVERY MOUTH EVERY TABLET BY Medicin DAY DAY MOUTH e EVERY DAY amlodipine amlodipine No amlodipine Vania 5 mg tablet 5 mg tablet 5 mg O rthope TAKE 1 TAKE 1 tablet dic TABLET BY TABLET BY TAKE 1 Spo rts MOUTH EVERY MOUTH EVERY TABLET BY Medicin DAY DAY MOUTH e EVERY DAY aspirin 81 aspirin 81 No aspirin 81 Vania mg mg mg Orthope tablet,freya tablet,freya tablet,del dic yed release yed release ayed S ports TAKE 1 TAKE 1 release Medicin TABLET BY TABLET BY TAKE 1 e MOUTH TWICE MOUTH TWICE TABLET BY A DAY A DAY MOUTH TWICE A DAY atenolol atenolol No atenolol Aza gregorio 100 mg 100 mg 100 mg Orthope tablet TAKE tablet TAKE tablet dic 1 TABLET BY 1 TABLET BY TAKE 1 Sports MOUTH EVERY MOUTH EVERY TABLET BY Medicin DAY DAY MOUTH e EVERY DAY atenolol 50 atenolol 50 No 1{table atenolol Vania mg tablet 1 mg tablet 1 t} 50 mg Orthope {tablet} by {tablet} by tablet 1 dic oral route. oral route. {tablet} Sports by oral Medicin route. e atorvastati atorvastati No 1{table atorvastat Vania n 20 mg n 20 mg t} in 20 mg Ortho pe tablet 1 tablet 1 tablet 1 dic {tablet} by {tablet} by {tablet} Sports oral route. oral route. by oral Medicin route. e Citalopram Citalopram No 1{table QD Citalopram Hydrobromid [...] HCl 20 MG t} HCl 20 MG Atenolol 50 Atenolol 50 No 1{table QD Atenolol MG MG t} 50 MG Spironolact Spironolact No Spironolac one one tone hydrALAZINE hydrALAZINE No 1{table QID hydrALAZIN HCl 10 MG HCl 10 MG t_with_ E HCl 10 food} MG Magnesium Magnesium No Magnesium Quinapril Quinapril No 1{table QD Quinapril HCl 20 MG HCl 20 MG t} HCl 20 MG Atorvastati Atorvastati No 1{table QD Atorvastat n Calcium n Calcium t} in Calcium 20 MG 20 MG 20 MG Citalopram Citalopram No 1{table QD Citalopram Hydrobromid Hydrobromid t} Hydrobromi e 20 MG e 20 MG de 20 MG amLODIPine amLODIPine No amLODIPine Besylate Besylate Besylate Omeprazole Omeprazole No 1{capsu QD Omeprazole 20 MG 20 MG le} 20 MG Vital Signs Vital Name Observation Time Observation Value Comments Source Height 2022-12-15 00:00:00 65 [in_i] [facility] BMI (Body Mass 2022-12-15 00:00:00 26.8 kg/m2 [facility] Index) Sports Medicine Body Weight 2022-12-15 00:00:00 161 [lb_av] [facility] Height 2022-11-03 00:00:00 65 [in_i] [facility] BMI (Body Mass 2022-11-03 00:00:00 26.8 kg/m2 [facility] Index) Sports Medicine Body Weight 2022-11-03 00:00:00 161 [lb_av] [facility] Height 2022-09-02 00:00:00 65 [in_i] [facility] BMI (Body Mass 2022-09-02 00:00:00 26.8 kg/m2 [facility] Index) Sports Medicine Body Weight 2022-09-02 00:00:00 161 [lb_av] [facility] height 2022-07-19 15:15:00 65.5 [in_i] Common [facility] weight 2022-07-19 15:15:00 159 [lb_av] [facility] temperature 2022-07-19 15:15:00 98.2 [degF] [facility] bmi 2022-07-19 15:15:00 26.05 kg/m2 [facility] blood pressure 2022-07-19 15:15:00 128 mm[Hg] [facility] - systolic [facility] blood pressure 2022-07-19 15:15:00 78 mm[Hg] [facility] - diastolic [facility] height 2022-06-11 09:00:00 65.5 [in_i] [facility] weight 2022-06-11 09:00:00 158 [lb_av] [facility] temperature 2022-06-11 09:00:00 98.2 [degF] [facility] bmi 2022-06-11 09:00:00 25.89 kg/m2 [facility] blood pressure 2022-06-11 09:00:00 124 mm[Hg] [facility] - systolic [facility] blood pressure 2022-06-11 09:00:00 74 mm[Hg] [facility] - diastolic [facility] Procedures Procedure Date / Time Performing Clinician Source Performed XR, knee, 1 or 2 view 2022-11-03 00:00:00 [facility] Total Replacement of 2022-09-23 00:00:00 [facility] Right Knee Joint Sports Medicine XR, knee, 1 or 2 view 2022-09-02 00:00:00 [facility] Tonsillectomy [facility] Encounters Start End Encounter Admission Attending Care Care Encounter Source Date/Time Date/Time Type Type Clinicians Facility Department ID 2022-06-11 Outpatient Lacie [facility] [id number] Common 08:51:04 Kwame [id number] [facility] 2023-03-29 2023-03-29 Outpatient FOG_Baldemar_R AO AO [id number] Vania 00:00:00 00:00:00 Noemy [id number] Ortho pe dic Sports Medicin e 2022-12-15 2022-12-15 Maxwell [place] - Ortho Vania 00:00:00 00:00:00 MD Baldemar: Madeline Will [facility] [id number] [place] [place] [address], [place] [address] , Ph. [phone] 2022-11-03 2022-11-03 Maxwell [place] - Ortho [id number] Vania 00:00:00 00:00:00 MD Baldemar: Madeline Roque [address] [facility] [place], [facility] [address], [place] [address] , Ph. [phone] 2022-10-10 2022-10-10 Outpatient FOG_Burke_R AOSM AOSM [id number] Vania 00:00:00 00:00:00 Noemy [id number] Ortho pe dic Sports Medicin e 2022-10-10 2022-10-10 Outpatient FOG_Burke_R AOSM AOSM [id number] Vania 00:00:00 00:00:00 Noemy [id number] Ortho pe dic Sports Medicin e 2022-10-10 2022-10-10 Outpatient FOG_Burke_R AOSM AOSM [id number] Vania 00:00:00 00:00:00 Noemy [id number] Ortho pe dic Sports Medicin e 2022-10-10 2022-10-10 Outpatient FOG_Burke_R AOSM AOSM [id number] Vania 00:00:00 00:00:00 Noemy [id number] Ortho pe dic Sports Medicin e 2022-10-10 2022-10-10 Outpatient FOG_Burke_R AOSM AOSM [id number] Vania 00:00:00 00:00:00 Noemy [id number] Ortho pe dic Sports Medicin e 2022-10-10 2022-10-10 Outpatient FOG_Burke_R AOSM AOSM [id number] Vania 00:00:00 00:00:00 Noemy [id number] Ortho pe dic Sports Medicin e 2022-10-10 2022-10-10 Outpatient FOG_Burke_R AOSM AOSM [id number] Vania 00:00:00 00:00:00 Noemy [id number] Ortho pe dic Sports Medicin e 2022-10-10 2022-10-10 Outpatient FOG_Burke_R AOSM AOSM [id number] Vania 00:00:00 00:00:00 Noemy [id number] Ortho pe dic Sports Medicin e 2022-10-08 2022-10-08 Shiloh H AOSM [place] - Ortho 24 Vania 00:00:00 00:00:00 Madeline Colunga PA: [id number] [facility], [address], [place] [address] , Ph. [phone] 2022-10-04 2022-10-04 Outpatient FOG_Burke_R AOSM AOSM [id number] Vania 00:00:00 00:00:00 Noemy [id number] Ortho pe dic Sports Medicin e 2022-10-04 2022-10-04 Outpatient FOG_Burke_R AOSM AOSM [id number] Vania 00:00:00 00:00:00 Noemy [id number] Ortho pe dic Sports Medicin e 2022-10-04 2022-10-04 Outpatient FOG_Burke_R AOSM AOSM [id number] Vania 00:00:00 00:00:00 Noemy [id number] Ortho pe dic Sports Medicin e 2022-09-27 2022-09-27 Outpatient FOG_Burke_R AOSM AOSM [id number] Vania 00:00:00 00:00:00 Noemy [id number] Ortho pe dic Sports Medicin e 2022-09-23 2022-09-24 Inpatient MARY Baldemar ARAMTO SURG [id number] [facility] 05:14:00 11:38:00 Maxwell [facility] 2022-09-10 2022-09-10 Outpatient FOG_Burke_R AOSM AOSM [id number] Vania 00:00:00 00:00:00 Noemy [id number] Ortho pe dic Sports Medicin e 2022-09-08 2022-09-08 Outpatient BaldemarARETHA LABO [id number] [facility] 19:24:00 19:24:00 Maxwell [facility] 2022-09-02 2022-09-02 Outpatient FOG_Burke_R AOSM AOSM [id number] Vania 00:00:00 00:00:00 Noemy [id number] Ortho pe dic Sports Medicin e 2022-09-02 2022-09-02 Maxwell Diaz AOSM [place] - Ortho [id number] Vania 00:00:00 00:00:00 MD Baldemar: Madeline Quevedo - Orthope [address] [place], [address], [place], [place] [address] , Ph. [phone] 2022-09-01 2022-09-01 Outpatient FOG_Dorothye_R AOSM AOSM [id number] Vania 00:00:00 00:00:00 Noemy [id number] Ortho pe dic Sports Medicin e 2022-07-19 2022-07-19 OFFICE STLMLC STLMLC [id number] Co mmon 00:00:00 00:00:00 VISIT EST Spir it PT LEVEL 3 [facility] 2022-06-29 2022-06-29 (TEL) STLMLC STLMLC [id number] Co mmon 00:00:00 00:00:00 [facility] 2022-06-23 2022-06-23 (TEL) STLMLC STLMLC [id number] Co mmon 00:00:00 00:00:00 [facility] 2022-06-11 2022-06-11 OFFICE STLMLC STLMLC [id number] Co mmon 00:00:00 00:00:00 VISIT NEW Spir it PT LEVEL 3 [facility] Results Test Description Test Time Test Comments Results Result Comments Source BASIC METABOLIC PANEL 2022-09-24 07:06:00 Test Item Value Reference Range Interpretation Comme nts SODIUM (test code = NA) 139 mmol/L 136-145 N POTASSIUM (test code = K) 4.5 mmol/L 3.5-5.1 N CHLORIDE (test code = CL) 104.0 mmol/L 98-107 N CARBON DIOXIDE (test code = 27.2 mmol/L 21-32 N CO2) GLUCOSE (test code = GLU) 101 mg/dL 70-110 N BLOOD UREA NITROGEN (test 16 mg/dL 7-18 N code = BUN) GLOMERULAR FILTRATION RATE 80.4 >60 T he Glomerular Filtration Rate (test code = GFR) is a calcu lated parameterbased on serum Creati nine, patient age and sex. GFR va luesless than 60 mL/min/1.73 squ are meters are indicative ofCh ronic Kidney Disease. Values less than 15 mL/min/1.73squa re meters indicate Kidney failure. The calculation for GFR is based on the CKD-EPI (20 21) calculation. This formulais race indifferent and is the pete mmended formula for GFRby the [facility] Kidney Foundation for Adults.The GFR will not calcul ate if the sex is unknown or if t hepatient's age is <18 years. CREATININE (test code = 0.77 mg/dL 0.55-1.30 N CREAT) CALCIUM (test code = CA) 8.8 mg/dL 8.2-10.1 N SPECIMEN COMMENT: POD #1HGB [id number] 06:34:00 Test Item Value Reference Range Interpretation Comments HEMOGLOBIN (test code = HGB) 12.3 g/dL 12-16 N HEMATOCRIT (test code = HCT) 37.4 % 37-47 N SPECIMEN COMMENT: POD #1Hemoglobin and Hematocrit panel - [id number] 04:00:00 Test Item Value Reference Range Interpretation Comments hemoglobin (test code = hemoglobin) 12.3 g/dL 12-16 hematocrit (test code = hematocrit) 37.4 % 37-47 performing lab: (test code = performing lab:) [id number] 04:00:00 Test Item Value Reference Range Interpretation Comments sodium (test code = sodium) 139 mmol/L 136-145 potassium (test code = 4.5 mmol/L 3.5-5.1 potassium) chloride (test code = chloride) 104.0 mmol/L 98-107 carbon dioxide (test code = 27.2 mmol/L 21-32 carbon dioxide) glucose (test code = glucose) 101 mg/dL 70-110 blood urea nitrogen (test code = 16 mg/dL 7-18 blood urea nitrogen) glomerular filtration rate (test 80.4 >60 code = glomerular filtration rate) creatinine (test code = 0.77 mg/dL 0.55-1.30 creatinine) calcium (test code = calcium) 8.8 mg/dL 8.2-10.1 performing lab: (test code = performing lab:) [facility]- XR KNEE 1 OR 2 V [id number] 17:37:00 [facility] : 1945 Sex: F Patient Name: ELIZABETH WALKER Unit No: [id number] EXAMS: CPT CODE: [id number] XR KNEE 1 OR 2 V RT 21614 RIGHT KNEE 2 VIEWS PORTABLE COMMENT: The patient is status post joint replacement which is articulating normally. at 1737 Reported and signed by: Serge Thomas MD CC: Maxwell Mcdermott MD Technologist: Janusz Chou(R) [facility] D/ ([id number]) FreddyJCL [facility] NAME: ELIZABETH WALKER [address] [facility] PHYS: Maxwell Hamilton MD : 1945 AGE: 77 SEX: F [place], [place] [address] LOC: Y.511 A PHONE #: [phone] EXAM DATE: 09/23/2022 STATUS: ADM IN FAX #: [phone] RAD #: D/C DT PAGE 1 Signed Report Patient Name: ELIZABETH WALKER Unit No: [id number] EXAMS: CPT CODE: [id number] XR KNEE 1 OR 2 V RT 20273 (Continued) Orig Print D/T: S: 09/23/2022 (1740) [facility] NAME: ELIZABETH WALKER [address] [place] [address] PHYS: Maxwell Hamilton MD : [birth year] AGE: 77 SEX: F [place] [id number] LOC: Naeem Anne PHONE #: [phone] EXAMDATE: 09/23/2022 STATUS: ADM IN FAX #: [phone] RAD #: D/C DT PAGE 2 Signed ReportCBC W/AUTO [id number] 18:09:00 Test Item Value Reference Range Interpretation Comments WHITE BLOOD CELL (test code = WBC) 10.2 K/mm3 5.8-11.0 N RED BLOOD CELL (test code = RBC) 4.63 M/mm3 4.2-5.4 N HEMOGLOBIN (test code = HGB) 14.1 g/dL 12-16 N HEMATOCRIT (test code = HCT) 43.1 % 37-47 N MEAN CELL VOLUME (test code = MCV) 93 fL 80-98 N MEAN CELL HGB (test code = MCH) 30.5 pg 27-34 N MEAN CELL HGB CONCENTRATION (test 32.7 g/dL 30.8-34.1 N code = MCHC) RED CELL DISTRIBUTION WIDTH (test 12.8 % 11-16 N code = RDW) PLT (test code = PLT) 304 K/mm3 130-400 N MEAN PLATELET VOLUME (test code = 10.9 fL 8.9-12.1 N MPV) NEUTROPHIL % (test code = NT%) 56.6 % 45-70 N LYMPHOCYTE % (test code = LY%) 26.5 % 20-40 N MONOCYTE % (test code = MO%) 13.5 % 3-10 H EOSINOPHIL % (test code = EO%) 2.8 % 1-5 N BASOPHIL % (test code = BA%) 0.4 % 0.0-1.1 N NEUTROPHIL # (test code = NT#) 5.80 K/mm3 2.00-7.50 N LYMPHOCYTE # (test code = LY#) 2.71 K/mm3 1.50-4.00 N MONOCYTE # (test code = MO#) 1.38 K/mm3 0.2-0.8 H EOSINOPHIL # (test code = EO#) 0.29 K/mm3 0.04-0.4 N BASOPHIL # (test code = BA#) 0.04 K/mm3 0.02-0.10 N MANUAL DIFF REQUIRED (test code = NO MANUAL DIFF MDIFF) NUCLEATED RED BLOOD CELL (test 0 % 0-0 N code = NRBC) COMPREHENSIVE METABOLIC [id number] 18:09:00 Test Item Value Reference Range Interpretation Comments SODIUM (test code = 143 mmol/L 136-145 N NA) POTASSIUM (test 4.0 mmol/L 3.5-5.1 N code = K) CHLORIDE (test code 104.0 mmol/L 98-107 N = CL) CARBON DIOXIDE 33.5 mmol/L 21-32 H (test code = CO2) GLUCOSE (test code 80 mg/dL 70-110 N = GLU) BLOOD UREA NITROGEN 23 mg/dL 7-18 H (test code = BUN) GLOMERULAR 73.5 >60 The Glomerular FILTRATION RATE Filtration R ate is a (test code = GFR) calculated parameterbased on serum Creatinin e, patient age and sex. GFR valuesless than 60 mL/min/1.73 squ are meters are brittney cative ofChronic Kidne y Disease. Values less than 15 mL/min/1.73squa re meters indicate Kidney failure. The calculation for GFR is based on the CK D-EPI (2020) calculat ion. This formulais race indifferent and is the recommended for zandra for GFRby the [facility] Kidney Foundati on for Adults.The GFR will not calculate i f the sex is unknown or if thepatient's ag e is <18 years. CREATININE (test 0.83 mg/dL 0.55-1.30 N code = CREAT) TOTAL PROTEIN (test 6.9 g/dL 6.4-8.2 N code = PROT) ALBUMIN (test code 3.5 g/dL 3.4-5.0 N = ALB) GLOBULIN (test code 3.4 g/dL 2.2-4.2 N = GLOB) ALBUMIN/GLOBULIN 1.0 0.7-2.0 N RATIO (test code = A/G) CALCIUM (test code 8.5 mg/dL 8.2-10.1 N = CA) BILIRUBIN TOTAL 0.20 mg/dL 0.2-1.00 N (test code = BILT) SGOT/AST (test code 19.0 U/L 15-37 N = AST) SGPT/ALT (test code 21.0 U/L 12-78 N = ALT) ALKALINE 109 U/L 46-116 N PHOSPHATASE TOTAL (test code = ALKP) CBC W Auto Differential panel - [id number] 16:11:00 Test Item Value Reference Range Interpretation Comments white blood cell (test code = 10.2 K/mm3 5.8-11.0 white blood cell) red blood cell (test code = red 4.63 M/mm3 4.2-5.4 blood cell) hemoglobin (test code = 14.1 g/dL 12-16 hemoglobin) hematocrit (test code = 43.1 % 37-47 hematocrit) mean cell volume (test code = mean 93 fL 80-98 cell volume) mean cell HGB (test code = mean 30.5 pg 27-34 cell HGB) mean cell HGB concentration (test 32.7 g/dL 30.8-34.1 code = mean cell HGB concentration) red cell distribution width (test 12.8 % 11-16 code = red cell distribution width) plt (test code = plt) 304 K/mm3 130-400 mean platelet volume (test code = 10.9 fL 8.9-12.1 mean platelet volume) neutrophil % (test code = 56.6 % 45-70 neutrophil %) lymphocyte % (test code = 26.5 % 20-40 lymphocyte %) monocyte % (test code = monocyte 13.5 % 3-10 H %) eosinophil % (test code = 2.8 % 1-5 eosinophil %) basophil % (test code = basophil 0.4 % 0.0-1.1 %) neutrophil # (test code = 5.80 K/mm3 2.00-7.50 neutrophil #) lymphocyte # (test code = 2.71 K/mm3 1.50-4.00 lymphocyte #) monocyte # (test code = monocyte 1.38 K/mm3 0.2-0.8 H #) eosinophil # (test code = 0.29 K/mm3 0.04-0.4 eosinophil #) basophil # (test code = basophil 0.04 K/mm3 0.02-0.10 #) manual diff required (test code = no manual diff manual diff required) nucleated red blood cell (test 0 % 0-0 code = nucleated red blood cell) performing lab: (test code = performing lab:) [facility] - Serum or [id number] 16:11:00 Test Item Value Reference Range Interpretation Comments sodium (test code = sodium) 143 mmol/L 136-145 potassium (test code = 4.0 mmol/L 3.5-5.1 potassium) chloride (test code = chloride) 104.0 mmol/L 98-107 carbon dioxide (test code = 33.5 mmol/L 21-32 H carbon dioxide) glucose (test code = glucose) 80 mg/dL 70-110 blood urea nitrogen (test code = 23 mg/dL 7-18 H blood urea nitrogen) glomerular filtration rate (test 73.5 >60 code = glomerular filtration rate) creatinine (test code = 0.83 mg/dL 0.55-1.30 creatinine) total protein (test code = total 6.9 g/dL 6.4-8.2 protein) albumin (test code = albumin) 3.5 g/dL 3.4-5.0 globulin (test code = globulin) 3.4 g/dL 2.2-4.2 albumin/globulin ratio (test 1.0 0.7-2.0 code = albumin/globulin ratio) calcium (test code = calcium) 8.5 mg/dL 8.2-10.1 bilirubin total (test code = 0.20 mg/dL 0.2-1.00 bilirubin total) SGOT/AST (test code = SGOT/AST) 19.0 U/L 15-37 SGPT/ALT (test code = SGPT/ALT) 21.0 U/L 12-78 alkaline phosphatase total (test 109 U/L 46-116 code = alkaline phosphatase total) performing lab: (test code = performing lab:) [facility]Meth[facility] resistant Staphylococcus aureus [Presence] in Specimen by Organism specific [id number] 16:11:00 Test Item Value Reference Range Interpretation Comments MRSA surveillance screen (test code see below = MRSA surveillance screen) performing lab: (test code = performing lab:) [facility] PCR surveillance [id number] 16:11:00 Test Item Value Reference Range Interpretation Comments mssa PCR surveillance screen (test see below code = mssa PCR surveillance screen) performing lab: (test code = performing lab:) [facility] Notes Date/Time Note Provider Source 2022-09-24 09:32:00 [id number]:32:00 [facility] ([facility])Clinical NoteREPORT#:[id number] REPORT STATUS: SignedDATE:09/24/22 TIME: 931 PATIENT: ELIZABETH WALKER UNIT #: [id number]#: [id number] [facility] [birth year] AGE: 77 SEX: F ATTEND: Maxwell Mcdermott [facility] AUTHOR: Aydin Garcia MD * ALL edits or amendments must be made on the electronic/computer document * Clinical NoteNote:[facility] Aydin Herring M.D. (cell text [phone]) Assessment/Plan1.) Anemia of acute blood loss- .Hgb 12.3, asymptomatic.2.) S/p Righ t TKA- .acute multi-modal pain control and followup. Anticoagulation as per Dr. De La Cruze3.) Hypertension- .follow BP and hold Rxs if SBP<120.4.) OsteoArthritis Hyperlipidemia- .continue on Rx.* OK for DISCHARGE per Internal Medicine. Prior Events/Overnight: Uneventful.Chief Complaint: No significant complaints. ObjectiveVital Signs: Date Time Temp Pulse Resp B/P B/P Pulse O2 O2 Flow FiO2 Mean Ox Delivery Rate 09/24 0711 97.5 80 16 115/69 84.3 92 Room air 09/24 0710 Room air 09/24 0433 96 Nasal 3 32 cannula 09/24 0420 96.8 74 17 125/59 81.3 98 09/23 2302 96.1 75 17 118/64 81.6 96 09/23 2049 92 Room air 0 21 09/23 1957 96.8 71 1 9 103/66 78.6 99 09/23 1544 96.4 64 15 108/69 81.7 94 Room air 09/23 1238 96.4 69 15 105/65 78.3 93 Room air 09/23 1238 96.4 69 15 105/65 78.3 93 Room air 09/23 1145 Nasal 3 cannula 09/23 1100 96.6 72 14 99/62 74.2 98 Room air 09/23 1000 99 Nasal 1.5 26 cannula 09/23 0957 96.4 74 17 125/7 5 91.3 97 Nasal cannula Gen: Alert, oriented, in mild discomfort Neck: No Masses, No Thyromegaly-CV: Regular Rate Rhythm / Edema- no significant Resp: Clear To Ascultation / Normal Respiratory EffortABD: NonTender / NonDistended MS/Skin: No sign of compartment syndrome / +ankl e DF/PFOther: Labs/X-ray: Laboratory Tests: 09/24 0400 Chemistry Sodium (136 - 145 mmol/L) 139 Potassium (3.5 - 5.1 mmol/L) 4.5 Chloride (98 - 107 mmol/L) 104.0 Carbon Dioxide (21 - 32 mmol/L ) 27.2 BUN (7 - 18 mg/dL) 16 Creatinine (0.55 - 1.30 mg/dL) 0.77 Glomerular Filtr Rate (>60) 80. 4 Glucose (70 - 110 mg/dL) 101 Calcium (8.2 - 10.1 mg/dL) 8.8 Hematology Hgb (12 - 16 g/dL) 12.3 Hc t (37 - 47 %) 37.4 Aydin Herring M.D. at 1209 RPT #:[id number] OF REPORT CLClinical [id number]:32:00Y.[id number] l able for patient [id number]:09:27 2022-09-24 05:33:00 [id number]:33:00 [facility] ([facility])Discharge SummaryREPORT#:[id number] REPORT STATUS: SignedDATE:09/24/22 TIME: 532 PATIENT: ELIZABETH WALKER UNIT #: [id number]#: [id number] ROOM[facility]BED: [facility]-ADOB: [birth year] AGE: 77 SEX: F ATTEND: Maxwell Mcdermott [facility] AUTHOR: Shiloh Colunga * ALL edits or amendments must be made on the electronic/computer document * General InformationDate of admission:Observation Start Date: 09/23/22Date of admission: 09/23/22 Discharge date: 09/24/22Admission diagnosis:Righ t knee osteoarthritisDischarge diagnosis:sameHospital course:The patient underwent the procedure without incident. Findings were significantfor degenerative diseas e of the knee. The patient was hemodynamically and medically monitored during the post op period. Anticoagulation was instituted for post op DVT prophylaxis. The patient was progressively able to tolerate PO pain medications and the appropriate diet. PT was instituted, with a progressive ability to ambulate and performed exercises. The patient was eventually deemed stable and safe for discharge. Despite factors which projected a longer hospital stay, the patient fulfilled criteria for earlier than expected discharge, including control of pain, early mobilization with PT and stable hemodynami c status. At discharge the patient was comfortable with a controlled pain level. There were no ches t or abdominal symptoms present. Discharge physica l exam demonstrated stable vitals and no acute distress. The patient had an intact dressing wit h no significant drainage and no calf tenderness. There were no neurologic or vascular deficits or changes from the preop states.Consultants: internal medicinePt. condition on discharge: stableAllergies:Allergies:Sulfa (Sulfonamide Antibiotics) (Coded, Severe, ANAPHYLAXIS, 09/08/22)Penicillins (Coded, Intermediate, RASH, 09/08/22) Med Rec Med RecDischarge meds:Continue taking these medications:CITALOPRAM (CeleXA) 10 MG TAB 10 MILLIGRAM ORAL DAILY. ATENOLOL (TENORMIN) 100 MG TAB 100 MILLIGRAM ORAL DAILY. SPIRONOLACTONE (ALDACTONE) 50 MG TAB 50 MILLIGRA M ORAL DAILY. amLODIPine (NORVASC) 5 MG TAB 5 MILLIGRAM ORAL DAILY. MAGNESIUM OXIDE (MAG-OXIDE ) 400 MG TAB 400 MILLIGRAM ORAL DAILY. ATORVASTATI N (LIPITOR) 40 MG TAB 40 MILLIGRAM ORAL BEDTIME. ASPIRIN (ASPIRIN) 81 MG TAB.CHEW 81 MILLIGRAM ORAL DAILY. [AFLIBERCEPT] 1 MG 1 RIGHT EYE DIRECTED. Instructions: RIGHT EYE INJECTION EVER Y ELEVEN WEEKS Treatments ProceduresTreatments Procedures:Procedure: Right total knee arthroplastyLab:Hematology last 24 hrs: 09/24 0400 Hematology Hgb (12 - 16 g/dL) 12.3 Hct (37 - 47 %) 37.4 Discharge Instructions PCPPCP:PCP: Undefined Provider )( Discharge to: Home/Self Care Discharge InstructionsAdditional Discharge Routines: Attending Follow-Up, Wound/Dressing Care)( Diet: Resume Home Diet/Feeds)( Weight monitoring: Not Required)( Activity: As Tolerated)( Wound/dressing care: Do not submerge incision, Leave dressing in place, OK toshower tomorrowPrescriptions: e-prescribeRx drug database reviewed: yes Follow-up AppointmentsAttending Physician: Attending Physician: Maxwell Mcdermott MD Attending physician follow up timeframe: In 1-2 weeks at 0652 at 1931 RPT #:[id number] OF REPORT DSDischarge [id number]:33:00Y.[id number] v ailable for patient [id number]:53:13 2022-09-23 18:09:00 [id number]:09:00 [facility]ENTERClinical NoteREPORT#:[id number] REPORT STATUS: SignedDATE:09/23/22 TIME: 180 PATIENT: ELIZABETH WALKER UNIT #: [id number]#: [id number] [facility] [birth year] AGE: 77 SEX: F ATTEND: Maxwell Mcdermott MDADM AUTHOR: Aydni Garcia MD * ALL edits or amendments must be made on the electronic/computer document * Clinical NoteNote:[facility] Aydin Herring MD(cell text [phone])Internal Medicine Consult at [facility] of : Dr. Baldemar Arreola Chief Complaint: Right kne e pain HPI: 77 yo F is now s/p Right Total Knee Arthroplasty (TKA) by Dr. Mcdermott. Ms. Walker relates years of progressive right knee pain (recently severe, 03/24), worse with activity, an d popping crunchy with restricted motion at times in quality. She has failed conservative management.Comorbidities: see below. PmHx: Hypertension, Right eye blood clot/occlusion ALLERGY: Allergies:Sulfa (Sulfonamide Antibiotics) (Coded, Severe, ANAPHYLAXIS, 09/08/22)Penicillins (Coded, Intermediate, RASH, 09/08/22) Home Medications: Home Medications:[AFLIBERCEPT] 1 RIGHT EYE ASDIR CITALOPRAM (CeleXA) 10 MG PO DAILY ATENOLOL (TENORMIN) 100 MG PO DAILY SPIRONOLACTONE (ALDACTONE) 50 MG PO DAILY amLODIPine (NORVASC) 5 MG PO DAILY MAGNESIUM OXIDE (MAG-OXIDE) 400 MG P O DAILY ATORVASTATIN (LIPITOR) 40 MG PO BEDTIME ASPIRIN 81 MG PO DAILY SgHx: Cataract surgery SHx: Tob: None FHx: .No significant hx of DVT/PE.Alcohol: None Drugs: none Lives: spouse. Vitals:Vital Signs: Date Time Temp Pulse Resp B/ P B/P Pulse O2 O2 Flow FiO2 Mean Ox Delivery Rate 09/23 1544 96.4 64 15 108/69 81.7 94 Room air 09/23 1238 96.4 69 15 105/65 78.3 93 Room air 09/23 1238 96.4 69 15 105/65 78.3 93 Room air 09/23 1145 Nasal 3 cannula 09/23 1100 96.6 72 1 4 99/62 74.2 98 Room air 09/23 1000 99 Nasal 1.5 26 cannula 09/23 0957 96.4 74 17 125/75 91.3 97 Nasal cannula 09/23 0830 71 12 126/64 100 Nasal 3 cannula 09/23 0815 72 12 127/61 100 Nasal 3 cannula 09/23 0900 75 14 129/57 99 Nasal 3 cannula 09/23 0845 77 14 136/61 100 Nasal 3 cannula 09/23 0843 Nasal 3 cannula 09/23 0830 Simple 8 mask 09/23 0830 80 15 148/71 98 Nasal 3 cannula 09/23 0815 98.1 78 17 123/58 96 Simple 8 mask 09/23 0540 96.7 91 16 171/77 97 Room air Gen: Alert, in mild discomfort.EYE: Nl lids conjunctiva.ENT: Nl ears Nose, nl lips,. Neck: Supple, nl thyroid, No masses.CV: Regular Rate Rhythm, no heave or significant murmur. Edema- none RESP: Clear to Auscultation, normal Respiratory effort.ABD: Soft, No Distended,.LYM: No significant cervical Lymphadenopathy.MS: No sign of compartment syndrome, Knee is wrapped, drain in placeNEURO: Nonfocal, grossly normal sensation of LE, +Ankle DF/PF..Preop Labs(09/08/22): CBC:. Hgb 14.1, Plt 304 CHEM: Na 143, K 4.0, Cr 0.83 (eGFR 73.5%)Ekg: NSR.(medium to high risk of complications or morbidity) (major surgery) (IV sedative, meds).Assessment Plan1.) Anemia of Acute Blood Loss- .will rechec k tomorrow. 2.) S/p Right TKA- .acute multi-modal pain control and followup. Anticoagulation as pe r Dr. De La Cruze3.) Hypertension- .follow BP and hold Rxs if SBP<120.4.) OsteoArthritis Hyperlipidemia- .continue on Rx.. Aydin Herring M.D. Thanks!..... G8417 BMI documented as above normal parameters and a f/u plan is [id number] - Patient screened for tobacco use AND identified as a tobacco non-[id number] - ACP discussion - default code status while at [facility]. at 0003 RPT #:[id number] OF REPORT CLClinical [id number]:09:00Y.[id number] l able for patient wywkPDBRHZUVHULRBE1116-87-16Y52:04:14 2022-09-23 07:57:00 [id number]:57:144021-9906 [place] [id number] PATIENT NAME: ELIZABETH WALKER ADMIT DATE: 09/23/22ACCOUNT NO: [id number] ROOM NO: .[facility] AGE: 77 REPORT TYPE: OPERATIVE REPORT SEX: F ADMITTING PHYSICIAN:Maxwell Mcdermott MD ATTENDING PHYSICIAN:Maxwell Mcdermott MD OPERATION DATE: 09/23/2022 PREOPERATIVE DIAGNOSIS: Right knee osteoarthropathy, M17.11. POSTOPERATIVE DIAGNOSIS: Right knee osteoarthropathy, M17.11. PROCEDURE: Right total knee arthroplasty, 58[address]. IMPLANTS UTILIZED: DePuy Sigma total knee system , size 3 right posterior stabilized femur, size 3 fixed-bearing tibial tray, 3 x 8 mm fixed-bearin g posterior cruciate sacrificing polyethylene insert, and 35 mm oval patella, all components cemented. ANESTHESIA: General. TOURNIQUET TIME: 16 minutes. ESTIMATED BLOOD LOSS: Less than 20 mL. SURGEON: Maxwell Mcdermott M.D. OTR REFRIGERATED CDL TRUCK DRIVER: TALI Colunga. OPERATIVE FINDINGS: As above. SURGICAL SPECIMENS SENT: None. CLINICAL INDICATIONS: Ms. Walker is a very pleasant 77-year-old female from [place], [place], who has been having progressive and severe pain involving her right knee for the past several years. The pain is currently disabling in nature . Her pain has been refractory to extensive nonoperative treatment. Due to her progressive disability and lack of response to nonoperative intervention,she is admitted for right total kne e arthroplasty. OPERATIVE NARRATIVE: Right total knee arthroplasty, [address]. PROCEDURE IN DETAIL: Ms. Walker was brought to the operative suite at which time she was placed in supine position on the OR table. Routine monitors were established. General anesthesia was delivered. After satisfactory induction ofgeneral anesthesia, a tourniquet was applied to the patient's right lower extremity per Ms. Colunga. The right leg was circumferentially prepped and draped in the usual sterile fashion per Ms. Colunga. The leg was then elevated, PATIENT NAME: ELIZABETH WALKER exsanguinated, tourniquet was insufflated to 300 mmHg. The knee was flexed to 100 degrees. Anterior midline incision was performed. Medial parapatellar arthrotomy was performed. Patella was everted laterally. Severe grade 4 changes involving the lateral compartment, grade 2 to 3 changes of the patellofemoral joint with grade 3 changes involving the medial compartment. Ligament balancing was achieved. Medial and lateral menisci were excised. Anterior and posterior cruciate ligaments were resected. Intramedullary instrumentation was then used to resect distal femur to 5 degrees of valgus, resecting 10 mm from the distal femur. The dista l femur was appropriately sizedand a size 3 cuttin g block was used to create the anterior followed b y posteriorfollowed by chamfer cuts. The appropriate osteotomy guide was then placed across distal femur and the femoral notch was resected. The proximal tibia was then translated anteriorly. Utilizing extramedullary instrumentation, the proximal tibia was resected perpendicular to its mechanical axis, resecting 10 mm from the lateral tibial plateau. The proximal tibia was appropriately sized and a siz e 3 baseplate was noted to provide optimal coverage. Proximal tibia was appropriately prepped. The patella was then resected, so as to ensure restorationism was of normal height with prosthesis in place. Flexion as well as extensio n gaps were checked and noted to be equal. Trial components were placed into the joint. Optimal stability was noted utilizing an8 mm insert, 0 degrees of gravity extension with 130 degrees of gravity flexion were achieved. Patellofemoral tracking normal limits. There was no varus or valgus instability noted. The knee was stable in both flexion as well as extension. Trial components were removed. Bony surfaces were prepared with cement implantation utilizing pulsatile lavage irrigation. Tibial tray cemente d into place followed by cement implantation of e femoral component. Polyethylene insert was then placed on the tibial tray and the knee was place d in the full extension. Patellar component was cemented. Tourniquet deflated. Meticulous hemostasis was achieved with Bovie electrocautery. Copious antibiotic lavage was performed. Medium Hemovac drain was then placed deep to the extensor mechanism and the knee was placed into 70 degrees of flexion. Arthrotomy closedin watertight fashion, 2.0 Quill suture. Skin closure with 0 Vicryl followed by2-0 Vicryl followed by Ethicon Prineo mesh per Ms. Colunga. Intraarticular anesthetic injection was performe d by Ms. Colunga. Sterile dressing was applied by Ms. Colunga. The patient was then extubated and taken to recovery room awake and alert without any anesthetic or operative complications. At e end of the case, sponge and needle counts were correct x2. During the procedure, Ms. Colunga was invaluable in positioning the patient alongwith preparation and draping of the extremity. She wa s also vital for providingsurgical exposure throughout the procedure in addition to closure of the postoperative incisions and postoperative anesthetic injection as well as application of the postoperative dressing. Dictated By: Maxwell Mcdermott MD Date Dictated: 09/23/2022 07:57:43Date Transcribed: 09/23/2022 09:13:48GENNY/Pravin #: [id number] PATIENT NAME: ELIZABETH WALKER Receipt ID: [id number] by Maxwell Mcdermott MD On 09/23/2022 10:06:08 AM at 1006 PATIENT NAME: ELIZABETH WALKER [id number]:13:00Y.[id number] i lable for patient yrnoWUCUBNLVMSCJBP1521-72-80A99:06:46 2022-09-23 06:25:00 [id number]:25:00 [facility] CENTERBrief Op NoteREPORT#:[id number] REPORT STATUS: SignedDATE:09/23/22 TIME: 624 PATIENT: ELIZABETH WALKER UNIT #: [id number]#: [id number] [address] [birth year] AGE: 77 SEX: F ATTEND: Maxwell Mcdermott MDADM AUTHOR: Shiloh Colunga * ALL edits or amendments mus t be made on the electronic/computer document * Op/Inv Proc Note - BriefPre-procedure diagnosis:Right knee osteoarthritisPost-procedur e diagnosis: same as pre procedure dxProcedures performed:Right total knee arthroplastyPrimary Surgeon:Yasminsistant(s): Keanu CESAR-CFindings:a s aboveComplications: noneEstimated blood loss in ml's: 25ccSpecimens removed/altered: none at 0627 at 0658 RPT #:[id number] OF REPORT OPOperative rwjgxt0705-51-79B95:25:00Y.[id number] a ilable for patient [id number]:27:21 2022-09-21 16:52:00 [id number] [facility] [place] [address] PATIENT NAME: ELIZABETH WALKER ADMIT DATE: 09/23/22ACCOUNT NO: [id number] ROOM NO: Y.998 AGE: 77 REPORT TYPE: HISTORY AND PHYSICAL SEX: F ADMITTING PHYSICIAN:Maxwell Mcdermott MD ATTENDING PHYSICIAN:Maxwell Mcdermott MD ADMISSION DATE: 09/16/2022 14:30:00 ADMITTING DIAGNOSIS: Right knee osteoarthritis, M17.11. HISTORY OF PRESENT ILLNESS: The patient is a 77-year-old female who has beenhaving progressiv e and chronic pain in her right knee for the past 10 years.Pain is affecting her daily activities. The pain is not abated despitenonoperative treatment. Pain is affecting both her daily activities as well asat rest. Due to her significant disability and lack of response to nonoperativetreatment, she is admitted for right total knee arthroplasty. PAST MEDICAL HISTORY: Hypertension. SOCIAL HISTORY: She is . e is retired. She does not smoke. MEDICATIONS: Consist of atenolol, atorvastatin, spironolactone. ALLERGIES: TO SULFA WELL PENICILLIN. SHE DENIES ANAPHYLAXIS WITHPENICILLI N WAS NEGATIVE. PHYSICAL EVALUATION:VITAL SIGNS: Height 5 feet 5 inches tall, 73.1 kg.HEENT: Within normal limits.CARDIAC: Regular rate and rhythm, no murmur.CHEST: .BACK: No CVA tenderness.EXTREMITIES: Leg lengths are equal. Full painless motion of both hips.Examination of right knee reveals an antalgic gait. She has a positiveeffusion. She has tricompartmental crepitus. She has 0-100 and stabilitynoted. Her distal neurovascular status is intact. revealed significanttricompartmental arthritis with aseptic necrosis involving the lateral femoralcondyle. ASSESSMENT: Right knee pain. SURGICAL PLAN: Surgical plan will be to proceed with imageless right total kneearthroplasty. Surgical plan will be to proceed with I have gone over atlength with the patient the associated risks involved with this procedure. Sheunderstands these risks include, but not limited to bleeding, transfusionrequirement, infection, neurovascular damage, persistent pain , loss of motion,need for further operative intervention, leg length inequality, loosening o f theprosthesis requiring the prosthesis requiring possible revision, painful scar PATIENT NAME: ELIZABETH WALKER , pulmonary emboli along with complications secondary to anesthesia. Sheunderstands that she will receive a fixed bearing posterior cruciate sacrificingtotal knee arthroplasty. She understands that there are no guarantees orwarranties that she will be pain free as a result of the procedure. The patientaccepts thes e risks and gives her informed consent to proceed. Dictated By: Maxwell Mcdermott MD Date Dictated: 09/21/2022 16:52:58Date Transcribed: 09/21/2022 20:07:26GENNY/TOMMY/DEVAN/Poncho #: [id number] ID: [id number] and Edited by Maxwell Mcdermott MD On 09/23/22 7:02:25 AM at 0705 PATIENT NAME: ELIZABETH WALKER and physical [id number]:[id number] A VAvailable for patient [id number]:12 2022-09-08 16:03:00 [id number] [facility] [place] [address] PATIENT NAME: ELIZABETH WALKER ADMIT DATE: ACCOUNT NO: [id number] ROOM NO: AGE: 77 REPORT TYPE: ELECTROCARDIOGRA M SEX: F ADMITTING PHYSICIAN: ATTENDING PHYSICIAN:Maxwell Mcdermott MD Order:[id number] Reason : HTN Test Date/Time Stamp:TueSep 08 2022 16:03:28Blood Pressure : / mmHGVent. Rate : 076 BPM Atrial Rate : 076 BPM P-R Int : 158 ms QRS Dur : 082 ms QT Int : 362 ms P-R-T Axes : 079 078 068 degrees QTc Int : 407 ms Normal sinus rhythmNormal ECGNo previous ECGs availableConfirmed by JAMSHID TREJO MD ([id number]) on 09/10/2022 4:49:22 PM Referred By: Maxwell Mcdermott Confirmed by:JAMSHID TREJO MD PATIENT NAME: ELIZABETH WALKER .[id number] AVAvailable for patient [id number]:55
--- NOTE | 2023-07-10 16:20 | RAD REPORT ---
EXAM DESCRIPTION: CT - CTHCSPWOC - 07/10/2023 3:23 pm CLINICAL HISTORY: TRAUMA COMPARISON: No comparisons TECHNIQUE: Axial thin cut noncontrast CT images of the head were obtained. Axial thin cut noncontrast CT images of the cervical spine were obtained. Multiplanar reformatted images were generated and reviewed. All CT scans are performed using dose optimization technique as appropriate and may include automated exposure control or mA/KV adjustment according to patient size. FINDINGS: CT HEAD WITHOUT CONTRAST: No acute hemorrhage, hydrocephalus or extra-axial collection is identified. Mild deep white matter hy poattenuation, nonspecific, but favored to relate to chronic small vessel ischemic changes. No areas of brain edema or midline shift. The paranasal sinuses and mastoids are clear.The calvarium is intact. CT CERVICAL SPINE WITHOUT CONTRAST: No fracture or subluxation. Mild straightening of normal cervical lordosis, could be positional or se condary to muscle spasm. Mild degenerative changes of the facets and endplates, without high-grade ca nal or foraminal stenosis. No prevertebral soft tissues swelling is identified. IMPRESSION: No acute traumatic intracranial or cervical spine findings. Mild straightening of normal cervical lordosis, could be positional or secondary to muscle spasm.
[2023-07-10] MEDS ORDERED: LIDOCAINE HCL JELLY 2% 6 ML SYRINGE TOP ONE (17:16)
[2023-07-10] MEDS ORDERED: LIDOCAINE 2% MPF 5 ML VIAL ONE (17:16)
--- NOTE | 2023-07-10 19:40 | ER ---
Nurse's Notes [facility] Name: Elizabeth Walker Age: 77 yrs Sex: Female : 1945 Arrival Date: 07/10/2023 Time: 14:11 Bed 10 Private MD: Kwame Medellin V Diagnosis: Fall on same level from slipping, tripping and stumbling with subsequent striking against object;Laceration without foreign body of lip;Contusion of nose, initial encounter;Contusion of right front wall of thorax;Fracture of tooth (traumatic)-and avulsion of additional front tooth Presentation: 07/10 14:15 Chief complaint: Patient states: TRIP AND FALL APPROXIMATELY 30 MIN. Care prior to db arrival: None. Mechanism of Injury: Fall. Mechanism of Injury: Fall from standing position. Trauma event details: Injury occurred in the [facility]. 14:15 Acuity: ROMEL 3 db 14:15 Method Of Arrival: Ambulatory db 14:20 Coronavirus screen: Vaccine status: Patient reports being unvaccinated. Client denies db travel out of the [place] in the last 14 days. At this time, the client does not indicate any symptoms associated with coronavirus-19. Ebola Screen: Patient negative for fever greater than or equal to 101.5 degrees Fahrenheit, and additional compatible Ebola Virus Disease symptoms Patient denies exposure to infectious person. Patient denies travel to an Ebola-affected area in the 21 days before illness onset. No symptoms or risks identified at this time. Initial Sepsis Screen: Does the patient meet any 2 criteria? No. Patient's initial sepsis screen is negative. Does the patient have a suspected source of infection? No. Patient's initial sepsis screen is negative. Risk Assessment: Do you want to hurt yourself or someone else? Patient reports no desire to harm self or others. 14:20 Onset of symptoms was July 10, 2023. db Triage Assessment: 14:20 General: Appears in no apparent distress. comfortable, Behavior is calm, cooperative. db Pain: Complains of pain in face. EENT: Nares with bleeding noted. Neuro: Level of Consciousness is awake, alert, obeys commands, Oriented to person, place, time, situation. Respiratory: Airway is patent Respiratory effort is even, unlabored, Respiratory pattern is regular, symmetrical. Trauma Activation: Not Applicable Physician: ED Physician; Name: ; Notified At: ; Arrived At: Physician: General Surgeon; Name: ; Notified At: ; Arrived At: Physician: Radiology; Name: ; Notified At: ; Arrived At: Physician: Respiratory; Name: ; Notified At: ; Arrived At: Physician: Lab; Name: ; Notified At: ; Arrived At: Historical: - Allergies: 14:20 Sulfa (Sulfonamide Antibiotics); db - PMHx: 14:20 Hyperlipidemia; Hypertension; db - Immunization history:: Adult Immunizations unknown. - Social history:: Smoking status: Patient denies any tobacco usage or history of. Screenin:30 [facility] ED Fall Risk Assessment (Adult) History of falling in the last 3 months, kb3 including since admission Yes- single mechanical fall (1 pt) Confusion or Disorientation No (0 pts) Intoxicated or Sedated No (0 pts) Impaired Gait No (0 pts) Mobility Assist Device Used No (0 pt) Altered Elimination No (0 pt) Score/Fall Risk Level 0 - 2 = Low Risk Oriented to surroundings, Maintained a safe environment, Educated pt \T\ family on fall prevention, incl call for assistance when getting out of bed. Abuse screen: Denies threats or abuse. Denies injuries from another. Nutritional screening: No deficits noted. Tuberculosis screening: No symptoms or risk factors identified. Primary Survey: 14:15 NO uncontrolled hemorrhage observed. A: The client is awake and alert. The airway is db patent. The client is alert. Airway: patent, No supplemental oxygen in use on arrival. Breathing/Chest: Spontaneous respiratory effort, equal unlabored respirations, breath sounds clear bilaterally, regular pattern, symmetrical chest rise and fall. Respiratory effort: spontaneous, unlabored, Breath sounds: clear, bilaterally. Respiratory pattern: regular, Chest inspection: symmetrical rise and fall of the chest. Circulation: No external hemorrhage present. Regular and strong central pulse, skin warm/dry/normal color. Disability Client is alert. Exposure/Environment: There is no evidence of uncontrolled external bleeding. Reassessment Alertness and Airway: Awake and alert. The airway is patent. Breathing: Spontaneous respiratory effort, equal unlabored respirations, breath sounds clear bilaterally, regular pattern with symmetrical chest rise and fall. Respiratory effort Spontaneous Unlabored Circulation: No external hemorrhage noted. Regular and strong central pulse, skin warm/dry/normal color. Disability: Alert. Assessment: 16:30 General: Appears in no apparent distress. uncomfortable, Behavior is calm, cooperative. kb3 16:30 Pain: Complains of pain in face Pain does not radiate. Pain currently is 7 out of 10 on kb3 a pain scale. Quality of pain is described as aching, tender, throbbing, Pain began 4 hours ago. Is continuous. Injury Description: Bruise sustained to face Laceration sustained to lower lip is clean, 0.5 to 2.5 cm long, not bleeding. Vital Signs: 14:15 BP 171 / 79; Pulse 89; Resp 18; Temp 98.8(O); Pulse Ox 100% on R/A; Weight 72.57 kg; db Height 5 ft. 5 in. ; 14:20 BP 171 / 79; Pulse 89; Resp 18; Temp 98.8(O); Pulse Ox 100% ; db 19:30 BP 158 / 78; Pulse 68; Resp 18; Pulse Ox 99% ; kb3 14:15 Body Mass Index 26.63 (72.57 kg, 165.1 cm) db [place] Coma Score: 14:15 Eye Response: spontaneous(4). Motor Response: obeys commands(6). Verbal Response: db oriented(5). Total: 15. Trauma Score (Adult): 14:15 Eye Response: spontaneous(1); Verbal Response: oriented(1); Motor Response: obeys db commands(2); Systolic BP: > 89 mm Hg(4); Respiratory Rate: 10 to 29 per min(4); [place] Score: 15; Trauma Score: 12 ED Course: 14:12 Patient arrived in ED. as 14:12 [facility] Ely [facility]-C [facility]. snw 14:12 Richy Gracia MD is Attending Physician. snw 14:14 Kwame Medellin MD is Private Physician. as 14:18 Triage completed. db 14:20 Arm band placed on Patient placed in an exam room. db 15:25 CT Head C Spine In Process Unspecified. EDMS 16:30 Patient has correct armband on for positive identification. Bed in low position. Call kb3 light in reach. Side rails up X 1. Adult w/ patient. Provided Education on: plan of care. 16:30 Assist provider with laceration repair on mouth that was 2.5 cm. or less using sutures. kb3 Set up tray. Performed by Brynn GASCA Patient tolerated well. Patient did not have IV access during this emergency room visit. 19:37 Kwame Medellin MD is Referral Physician. snw Administered Medications: 17:08 Drug: Lidocaine Mucous Membrane Gel 2 % 1 application Mucous Membrane once; to lower kb3 lip lac Route: Mucous Membrane; 19:46 Drug: Lidocaine Infiltration (2 %) 5 mg Infiltration once {Note: Administered by JANETTE kb3 during laceration repair procedure.} Route: Infiltration; 19:46 Drug: HYDROcodone-acetaminophen PO 5 mg-325 mg 1 tabs PO once Route: PO; kb3 19:46 Drug: Amoxicillin-Clavulanate PO 875 mg PO once Route: PO; kb3 Medication: 19:30 VIS not applicable for this client. kb3 Outcome: 19:40 Discharge ordered by . snw 20:00 Discharged to home ambulatory, with family, kb3 20:00 Condition: improved 20:00 Discharge instructions given to patient, family, Instructed on discharge instructions, follow up and referral plans. medication usage, Demonstrated understanding of instructions, follow-up care, medications, Prescriptions given X 2, 20:52 Patient left the ED. kb3 Signatures: Dispatcher [employer] EDMS Brynn Ely FNP-C HEALTH SCIENCE SPECIALIST-Reba Lou Kelly, RN RN kb3 Karen Chen RN RN db
--- NOTE | 2023-07-10 19:40 | EDPHYS ---
Physician Documentation [facility] Name: Elizabeth Walker Age: 77 yrs Sex: Female : 1945 Arrival Date: 07/10/2023 Time: 14:11 Bed 10 Private MD: Kwame Medellin V ED Physician Richy Gracia HPI: 07/10 17:06 This 77 yrs old Female presents to ER via Ambulatory with complaints of Fall Injury, snw Facial Injury. 17:06 Details of fall: The patient fell from an upright position, while walking, tripped and snw flipped forward to face, knocked onto face, avulsed two front teeth, Daughter repositioned right front tooth. Onset: The symptoms/episode began/occurred suddenly. Severity of symptoms: At their worst the symptoms were moderate, severe. It is unknown whether or not the patient has recently seen a physician. Historical: - Allergies: 14:20 Sulfa (Sulfonamide Antibiotics); db - PMHx: 14:20 Hyperlipidemia; Hypertension; db - Immunization history:: Adult Immunizations unknown. - Social history:: Smoking status: Patient denies any tobacco usage or history of. ROS: 17:03 Constitutional: Negative for fever, chills, and weight loss, Eyes: Negative for injury, snw pain, redness, and discharge, Neck: Negative for injury, pain, and swelling, Cardiovascular: Negative for chest pain, palpitations, and edema, Respiratory: Negative for shortness of breath, cough, wheezing, and pleuritic chest pain, Abdomen/GI: Negative for abdominal pain, nausea, vomiting, diarrhea, and constipation, Back: Negative for injury and pain, : Negative for injury, bleeding, discharge, and swelling, MS/Extremity: Negative for injury and deformity, 17:03 Neuro: Negative for headache, weakness, numbness, tingling, and seizure, Psych: Negative for depression, anxiety, suicide ideation, homicidal ideation, and hallucinations, 17:03 Skin: Positive for ecchymosis, of the upper left central incisor (#9) and nose and heels of bilateral hands, Exam: 17:01 Eyes: Pupils equal round and reactive to light, extra-ocular motions intact. Lids and snw lashes normal. Conjunctiva and sclera are non-icteric and not injected. Cornea within normal limits. Periorbital areas with no swelling, redness, or edema. 17:01 Neck: Trachea midline, no thyromegaly or masses palpated, and no cervical lymphadenopathy. Supple, full range of motion without nuchal rigidity, or vertebral point tenderness. No Meningismus. Chest/axilla: Normal chest wall appearance and motion. Nontender with no deformity. No lesions are appreciated. Cardiovascular: Regular rate and rhythm with a normal S1 and S2. No gallops, murmurs, or rubs. Normal PMI, no JVD. No pulse deficits. Respiratory: Lungs have equal breath sounds bilaterally, clear to auscultation and percussion. No rales, rhonchi or wheezes noted. No increased work of breathing, no retractions or nasal flaring. Abdomen/GI: Soft, non-tender, with normal bowel sounds. No distension or tympany. No guarding or rebound. No evidence of tenderness throughout. Back: No spinal tenderness. No costovertebral tenderness. Full range of motion. MS/ Extremity: Pulses equal, no cyanosis. Neurovascular intact. Full, normal range of motion. Neuro: Awake and alert, GCS 15, oriented to person, place, time, and situation. Cranial nerves II-XII grossly intact. Motor strength 5/5 in all extremities. Sensory grossly intact. Cerebellar exam normal. Normal gait. Psych: Awake, alert, with orientation to person, place and time. Behavior, mood, and affect are within normal limits. 17:01 Constitutional: The patient appears alert, awake, uncomfortable, 17:01 Head/face: Noted is contusion, swelling, that is moderate, that is severe, of the nose, 17:01 ENT: External ear(s): are unremarkable, Nose: Nasal septum: no septal hematoma appreciated, bleeding, is noted from both nares, Posterior pharynx: is normal, Dental exam: avulsion, specifically the upper right central Incisor (#8) loose and upper left central incisor (#9) completely avulsed, upper inner lip small laceration, lower middle lip laceration through abdoulaye border. Vital Signs: 14:15 BP 171 / 79; Pulse 89; Resp 18; Temp 98.8(O); Pulse Ox 100% on R/A; Weight 72.57 kg; db Height 5 ft. 5 in. ; 14:20 BP 171 / 79; Pulse 89; Resp 18; Temp 98.8(O); Pulse Ox 100% ; db 19:30 BP 158 / 78; Pulse 68; Resp 18; Pulse Ox 99% ; kb3 14:15 Body Mass Index 26.63 (72.57 kg, 165.1 cm) db [place] Coma Score: 14:15 Eye Response: spontaneous(4). Motor Response: obeys commands(6). Verbal Response: db oriented(5). Total: 15. Trauma Score (Adult): 14:15 Eye Response: spontaneous(1); Verbal Response: oriented(1); Motor Response: obeys db commands(2); Systolic BP: > 89 mm Hg(4); Respiratory Rate: 10 to 29 per min(4); Nicolaus Score: 15; Trauma Score: 12 Laceration: 19:36 Wound Repair of 2cm ( 0.8in ) subcutaneous laceration to lower abdoulaye border and snw face. Skin/tissue flap noted.. Distal neuro/vascular/tendon intact. Anesthesia: Local anesthetic administered with 3 mls of 1% lidocaine, Topical anesthetic administered with 2 mls of 1% lidocaine. Wound prep: Moderate cleansing with hibiclenz by me. Skin closed with 4 6-0 Prolene using simple sutures and sterile technique. Dressed with none. Patient tolerated well. MDM: 14:13 Patient medically screened. snw 19:42 Differential diagnosis: abrasion, closed head injury, contusion, fracture, sprain, snw strain. Data reviewed: vital signs, nurses notes, radiologic studies, CT scan. I considered the following discharge prescriptions or medication management in the emergency department Medications were administered in the Emergency Department. See MAR. Counseling: I had a detailed discussion with the patient and/or guardian regarding the historical points, exam findings, and any diagnostic results supporting the discharge/admit diagnosis, the presence of at least one elevated blood pressure reading (>120/80) during this emergency department visit, radiology results, the need for outpatient follow up, for definitive care, a dentist, an sanitation truck driver, to return to the emergency department if symptoms worsen or persist or if there are any questions or concerns that arise at home. Response to treatment: the patient's symptoms have markedly improved after treatment. Special discussion: I have referred the patient to see his PCP for further evaluation of high blood pressure. Based on the patient's history, exam and DX evaluation, there is no indication for emergent intervention or inpatient TX. It is understood by the patient/guardian that if the SXs persist or worsen they need to return immediately for re-evaluation. Based on the history and exam findings, there is no indication for further emergent testing or inpatient evaluation. I discussed with the patient/guardian the need to see a dentist for further evaluation of the symptoms. I discussed with the patient/guardian the need to see the primary care provider for further evaluation of the symptoms. 07/10 14:35 Order name: CT Head C Spine; Complete Time: 16:46 snw 07/10 16:47 Order name: Suture Tray Setup snw Administered Medications: 17:08 Drug: Lidocaine Mucous Membrane Gel 2 % 1 application Mucous Membrane once; to lower kb3 lip lac Route: Mucous Membrane; 19:46 Drug: Lidocaine Infiltration (2 %) 5 mg Infiltration once {Note: Administered by JANETTE kb3 during laceration repair procedure.} Route: Infiltration; 19:46 Drug: HYDROcodone-acetaminophen PO 5 mg-325 mg 1 tabs PO once Route: PO; kb3 19:46 Drug: Amoxicillin-Clavulanate PO 875 mg PO once Route: PO; kb3 Disposition Summary: 07/10/23 19:40 Discharge Ordered Notes: Location: Home snw Condition: Stable snw Diagnosis - Fall on same level from slipping, tripping and stumbling with subsequent striking snw against object - Laceration without foreign body of lip snw - Contusion of nose, initial encounter snw - Contusion of right front wall of thorax snw - Fracture of tooth (traumatic) - and avulsion of additional front tooth snw Followup: snw - With: Kwame Medellin MD - When: 5 - 6 days - Reason: Recheck today's complaints, Continuance of care, Re-evaluation by your physician Followup: snw - With: Emergency Department - When: As needed - Reason: Worsening of condition Discharge Instructions: - Discharge Summary Sheet snw - Contusion snw - Nosebleed, Adult snw - Facial or Scalp Contusion snw - Head Injury, Adult snw - Fall Prevention in the Home, Adult snw - Mouth Laceration snw - Facial Laceration snw - Sutured Wound Care snw - Tooth Injuries snw - Tooth Avulsion snw Forms: - Medication Reconciliation Form snw - Thank You Letter snw - Antibiotic Education snw - Prescription Opioid Use snw - Patient Portal Instructions snw - Leadership Thank You Letter snw Prescriptions: - Augmentin 875-125 mg Oral Tablet - take 1 tablet ORAL route every 12 hours for 10 days; 20 tablet; Refills: 0, snw Product Selection Permitted - Tramadol 50 mg Oral Tablet - take 1 tablet ORAL route every 8 hours as needed; 12 tablet; Refills: 0, snw Product Selection Permitted - orphenadrine citrate 100 mg Oral Tablet Sustained Release - take 1 tablet ORAL route 2 times per day As needed; 20 tablet; Refills: 0, snw Product Selection Permitted Signatures: Dispatcher [employer] EDMS Brynn Ely FNP-C [employer]-[place] Denise Kelley, RN RN kb3 Karen Chen, RN RN db Corrections: (The following items were deleted from the chart) 17:09 17:01 ENT: External ear(s): are unremarkable, Nose: Nasal septum: no septal hematoma snw appreciated, bleeding, is noted from both nares, Posterior pharynx: is normal, Dental exam: avulsion, specifically the upper right central Incisor (#8) loose and upper left central incisor (#9) completely avulsed, snw 17: 17:01 Neck: Trachea midline, no thyromegaly or masses palpated, and no cervical snw lymphadenopathy. Supple, full range of motion without nuchal rigidity, or vertebral point tenderness. No Meningismus. Chest/axilla: Normal chest wall appearance and motion. Nontender with no deformity. No lesions are appreciated. Cardiovascular: Regular rate and rhythm with a normal S1 and S2. No gallops, murmurs, or rubs. Normal PMI, no JVD. No pulse deficits. Respiratory: Lungs have equal breath sounds bilaterally, clear to auscultation and percussion. No rales, rhonchi or wheezes noted. No increased work of breathing, no retractions or nasal flaring. Abdomen/GI: Soft, non-tender, with normal bowel sounds. No distension or tympany. No guarding or rebound. No evidence of tenderness throughout. Back: No spinal tenderness. No costovertebral tenderness. Full range of motion. MS/ Extremity: Pulses equal, no cyanosis. Neurovascular intact. Full, normal range of motion. Neuro: Awake and alert, GCS 15, oriented to person, place, time, and situation. Cranial nerves II-XII grossly intact. Motor strength 5/5 in all extremities. Sensory grossly intact. Cerebellar exam normal. Normal gait. Psych: Awake, alert, with orientation to person, place and time. Behavior, mood, and affect are within normal limits. snw
[2023-07-10] MEDS ORDERED: AMOX/K CLAV 875 MG TAB ONE (19:55)
[2023-07-10] MEDS ORDERED: HYDROCODONE/APAP 5/325 MG TAB ONE (19:55)
[2023-07-10 21:09] VITALS: TEMP 98.8
[2023-07-10 21:12] VITALS: BP 158/78; O2SAT 99
== END 2023-07-10 20:52 | disposition home or self-care (01) ==
LOC: ER 14:11
PROC: 0HQ1XZZ Repair Face Skin, External Approach (ICD-10-PCS; principal; 2023-07-10)
DX: S01.511A Laceration without foreign body of lip, initial encounter (principal); S02.5XXA Fracture of tooth (traumatic), initial encounter for closed fracture; S20.211A Contusion of right front wall of thorax, initial encounter; W01.10XA Fall on same level from slipping, tripping and stumbling with subsequent striking against unspecified object, initial encounter; Z88.2 Allergy status to sulfonamides
CPT/HCPCS: 70450; 72125; 99284; 12011; J2001